=== PATIENT | male | born 1940 | race Caucasian/White ===

== ENCOUNTER 2016-12-02 14:06 | Observation (INO) | payer MEDICARE, BC ==
[~2016-12-02] VITALS: Ht 167.6 cm; Wt 70.0 kg
[2016-12-02] VITALS (12 sets, daily range): BP systolic 130–226; BP diastolic 70–101; PULSE 60–78; RESP 18–22; TEMP 98.3–98.6; O2SAT 97–100
[~2016-12-02 14:06] MED LIST: AMLO10 PO; ASPI325T PO; CHLO25TA2 PO; METF500 PO; NITR0.4S SL
--- NOTE | 2016-12-02 14:22 | PD ---
HPI Chief Complaint: Respiratory Distress Time Seen by Provider: 14:11 Travel History International Travel<30 days: No Contact w/Intl Traveler<30days: No Traveled to known affect area: No History of Present Illness HPI 76-year-old male complains of chest pain. Patient states that his eye having chest pain several days ago. Patient states that the pain across anterior chest with radiation to the neck. Patient states that the pain has been persistent however resolved before he came to the emergency room. Patient denies any chest pain now. Patient denies any history of CAD. Patient has history of hypertension. Patient denies history diabetes or hyperlipidemia. Patient is a nonsmoker. Patient has family history of heart disease. Patient states that he is not on any medication now. Patient states that he was on medication for hypertension however stopped taking it in the past. Patient has history of left inguinal hernia for years. PFSH Past Medical History Autoimmune Disease: No Anxiety: No Depression: Yes Heart Rhythm Problems: No Cancer: No Cardiovascular Problems: Yes (HTN) High Cholesterol: No Chemotherapy: No Chest Pain: Yes (PT SAYS HE HAD SOMETHING WRONG WITH HIS HEART BUT HE DOES NOT KNOW WHAT) Congestive Heart Failure: No Cerebrovascular Accident: No Diabetes: Yes Diminished Hearing: Yes (BILAT EAR PAIN) Endocrine: No Gastrointestinal Disorders: No GERD: No Genitourinary: No Hypertension: Yes Immune Disorder: No Musculoskeletal: No Neurologic: No Psychiatric: Yes Reproductive: No Respiratory: Yes Immunizations Current: Yes Radiation Therapy: No Seizures: No Sickle Cell Disease: No Thyroid Disease: No ?: Not Past Surgical History Abdominal Surgery: Yes (R HERNIA SX) AICD: No Arteriovenous Shunt: No Insulin Pump: No Joint Replacement: No Neurologic Surgery: Yes (discectomy) Pacemaker: No Other Surgery: Yes Social History Alcohol Use: Yes (COUPLE BEERS A DAY) Tobacco Use: Yes (1 PPD) Substance Use: No Allergies-Medications (Allergen,Severity, Reaction): Coded Allergies: No Known Allergies (Unverified , 12/01/15) Reported Meds & Prescriptions Reported Meds & Active Scripts Active Reported Norvasc (Amlodipine Besylate) 10 Mg Tab 10 Mg PO DAILY PRN Nitrostat SL (Nitroglycerin) 0.4 Mg Subl 0.4 Mg SL ONCE Glucophage (Metformin HCl) 500 Mg Tab 500 Mg PO With meals Chlorthalidone 25 Mg Tab 25 Mg PO DAILY [id number] M1 Unknown Strength Tab 1 Tab PO DAILY Review of Systems General / Constitutional: No: Fever Eyes: No: Visual changes HENT: No: Headaches Cardiovascular: Positive: Chest Pain or Discomfort Respiratory: No: Shortness of Breath Gastrointestinal: No: Abdominal Pain Genitourinary: No: Dysuria Musculoskeletal: No: Pain Skin: No Rash Neurologic: No: Weakness Psychiatric: No: Depression Endocrine: No: Polydipsia Hematologic/Lymphatic: No: Easy Bruising Physical Exam Narrative GENERAL: Well-nourished, well-developed patient. SKIN: Focused skin assessment warm/dry. HEAD: Normocephalic. EYES: No scleral icterus. No injection or drainage. NECK: Supple, trachea midline. No JVD or lymphadenopathy. CARDIOVASCULAR: Regular rate and rhythm without murmurs, gallops, or rubs. RESPIRATORY: Breath sounds equal bilaterally. No accessory muscle use. GASTROINTESTINAL: Abdomen soft, non-tender, nondistended. MUSCULOSKELETAL: No cyanosis, or edema. BACK: Nontender without obvious deformity. No CVA tenderness. Patient has a large reducible left inguinal hernia. Neurologic exam normal. Data Data Last Documented VS Vital Signs Date Time Temp Pulse Resp B/P (MAP) Pulse Ox O2 Delivery O2 Flow Rate FiO2 12/02/16 15:30 74 22 140/100 (113) 98 Nasal Cannula 2.00 12/02/16 14:16 98.3 Orders Orders Electrocardiogram (12/02/16 14:12) Complete Blood Count With Diff (12/02/16 14:12) Comprehensive Metabolic Panel (12/02/16 14:12) Creatine Kinase (Cpk) (12/02/16 14:12) Troponin I (12/02/16 14:12) B-Type Natriuretic Peptide (12/02/16 14:12) Prothrombin Time / Inr (Pt) (12/02/16 14:12) Act Partial Throm Time (Ptt) (12/02/16 14:12) Urinalysis - C+S If Indicated (12/02/16 14:12) Thyroid Stimulating Hormone (12/02/16 14:12) Chest, Single Ap (12/02/16 14:12) Iv Access Insert/Monitor (12/02/16 14:12) Ecg Monitoring (12/02/16 14:12) Oximetry (12/02/16 14:12) Sodium Chlor 0.9% 1000 Ml Inj (Ns 1000 M (12/02/16 14:15) Labs Laboratory Tests Test 12/02/16 14:30 12/02/16 15:35 White Blood Count 10.4 TH/MM3 Red Blood Count 3.98 MIL/MM3 Hemoglobin 11.3 GM/DL Hematocrit 34.8 % Mean Corpuscular Volume 87.4 FL Mean Corpuscular Hemoglobin 28.4 PG Mean Corpuscular Hemoglobin Concent 32.5 % Red Cell Distribution Width 16.5 % Platelet Count 273 TH/MM3 Mean Platelet Volume 9.6 FL Neutrophils (%) (Auto) 43.1 % Lymphocytes (%) (Auto) 49.8 % Monocytes (%) (Auto) 5.8 % Eosinophils (%) (Auto) 1.1 % Basophils (%) (Auto) 0.2 % Neutrophils # (Auto) 4.5 TH/MM3 Lymphocytes # (Auto) 5.2 TH/MM3 Monocytes # (Auto) 0.6 TH/MM3 Eosinophils # (Auto) 0.1 TH/MM3 Basophils # (Auto) 0.0 TH/MM3 CBC Comment AUTO DIFF Differential Total Cells Counted 100 Neutrophils % (Manual) 46 % Band Neutrophils % 1 % Lymphocytes % 51 % Monocytes % 2 % Neutrophils # (Manual) 4.9 TH/MM3 Differential Comment FINAL DIFF MANUAL Platelet Estimate NORMAL Platelet Morphology Comment NORMAL Ovalocytes 1+ Keratocytes OCC Prothrombin Time 10.2 SEC Prothromb Time International Ratio 0.9 RATIO Activated Partial Thromboplast Time 25.5 SEC Blood Urea Nitrogen 18 MG/DL Creatinine 0.97 MG/DL Random Glucose 93 MG/DL Total Protein 8.2 GM/DL Albumin 3.2 GM/DL Calcium Level 8.6 MG/DL Alkaline Phosphatase 74 U/L Aspartate Amino Transf (AST/SGOT) 18 U/L Alanine Aminotransferase (ALT/SGPT) 26 U/L Total Bilirubin 0.3 MG/DL Sodium Level 138 MEQ/L Potassium Level 4.0 MEQ/L Chloride Level 105 MEQ/L Carbon Dioxide Level 27.8 MEQ/L Anion Gap 5 MEQ/L Estimat Glomerular Filtration Rate 75 ML/MIN Total Creatine Kinase 29 U/L Troponin I LESS THAN 0.02 NG/ML B-Type Natriuretic Peptide 342 PG/ML Thyroid Stimulating Hormone 3rd Gen 0.540 uIU/ML Urine Color YELLOW Urine Turbidity CLEAR Urine pH 7.5 Urine Specific [place] 1.012 Urine Protein NEG mg/dL Urine Glucose (UA) NEG mg/dL Urine Ketones NEG mg/dL Urine Occult Blood NEG Urine Nitrite NEG Urine Bilirubin NEG Urine Urobilinogen LESS THAN 2.0 MG/DL Urine Leukocyte Esterase NEG Urine RBC LESS THAN 1 /hpf Microscopic Urinalysis Comment CULT NOT INDICATED MDM Medical Decision Making Medical Screen Exam Complete: Yes Emergency Medical Condition: Yes Interpretation(s) 1421 PM. EKG shows sinus rhythm with frequent PVC. Last Impressions Chest X-Ray 12/02/16 1412 Signed Impressions: Service Date/Time: November 14:26 - CONCLUSION: 1. Airspace consolidation in the right midlung zone, likely chronic given previous findings in this region. However, given lack of more recent prior exams at least a partially acute airspace consolidation cannot be excluded in the appropriate clinical setting. Paxton Medina MD 1447 PM. CBC WBC 10.4. Hemoglobin 11.3 hematocrit 34.8. 49 lymphocytes. CMP within normal limit. Cardiac enzymes are normal. BNP 342. Differential Diagnosis Differential diagnosis including angina, OH, PE, pneumothorax, uncontrolled hypertension. Narrative Course 76-year-old male with chest pain. History hypertension, noncompliant. Diagnosis Primary Impression: Chest pain Qualified Codes: R07.9 - Chest pain, unspecified Admitting Information Admitting Physician Requests: Observation Michael Foreman MD Dec 02, 2016 14:22
[2016-12-02 14:52] LABS: AUTOMATED NEUTROPHIL # 4.5 TH/MM3 (1.8-7.7); BASOPHIL % 0.2 % (0.0-2.0); EOSINOPHIL # 0.1 TH/MM3 (0-0.4); EOSINOPHIL % 1.1 % (0.0-4.0); HEMATOCRIT 34.8 % (39.0-51.0); LYMPH % 49.8 % (9.0-44.0); LYMPHOCYTE # 5.2 TH/MM3 (1.0-4.8); MEAN CELL VOLUME 87.4 FL (80.0-100.0); MEAN CORPUSCULAR HEMOGLOBIN 28.4 PG (27.0-34.0); MEAN CORPUSCULAR HGB CONC 32.5 % (32.0-36.0); MONO % 5.8 % (0.0-8.0); NEUT % 43.1 % (16.0-70.0); PLATELET COUNT 273 TH/MM3 (150-450); RED BLOOD COUNT 3.98 MIL/MM3 (4.50-5.90); RED CELL DISTRIBUTION WIDTH 16.5 % (11.6-17.2); WHITE BLOOD COUNT 10.4 TH/MM3 (4.0-11.0)
[2016-12-02 14:54] LABS: HEMO FLAGS AUTO DIFF
[2016-12-02] MEDS: SODIUM CHLOR 0.9% 1000 ML INJ 1,000 ML IV SCH ×2 (14:58→22:51)
[2016-12-02 15:02] LABS: APTT (PATIENT) 25.5 SEC (24.3-30.1); INTERNATIONAL NORMALIZED RATIO 0.9 RATIO; PROTHROMBIN TIME - PATIENT 10.2 SEC (9.8-11.6)
[2016-12-02 15:13] LABS: ALT (GPT) 26 U/L (12-78); ANION GAP 5 MEQ/L (5-15); AST (GOT) 18 U/L (15-37); BICARBONATE 27.8 MEQ/L (21.0-32.0); BLOOD UREA NITROGEN 18 MG/DL (7-18); CHLORIDE 105 MEQ/L (98-107); GLOMERULAR FILTRATION RATE 75 ML/MIN (>89); SODIUM (NA) 138 MEQ/L (136-145)
[2016-12-02 15:24] LABS: ALKALINE PHOSPHATASE 74 U/L (45-117); TOTAL BILIRUBIN ADULT 0.3 MG/DL (0.2-1.0)
[2016-12-02 15:26] LABS: CREATINE KINASE 29 U/L (39-308)
[2016-12-02 15:52] LABS: BANDS 1 % (0-6); KERATOCYTES OCC (NORMAL); NEUTROPHIL # MANUAL DIFF 4.9 TH/MM3 (1.8-7.7); OVALOCYTES 1+ (NORMAL); PLATELET ESTIMATE SMEAR NORMAL (NORMAL); PLATELET MORPHOLOGY NORMAL (NORMAL); POLYS (SEG NEUTROPHILS) 46 % (16-70); SCAN/DIFF FINAL DIFF MANUAL; WBC DIFF SAMPLE 100
--- NOTE | 2016-12-02 16:06 | RADRPT ---
EXAM DATE/TIME: 12/02/2016 14:26 [facility] COMPARISON: CHEST SINGLE AP, December 01, 2015, 11:32. INDICATIONS : Chest pain MEDICAL HISTORY : Hypertension. SURGICAL HISTORY : None. ENCOUNTER: Initial ACUITY: 1 day PAIN SCORE: 4/10 LOCATION: chest FINDINGS: Focal air space consolidation in the right midlung zone corresponding to region of prior mild airspac e disease and overlying rib trauma. No new focal pleural or parenchymal opacities. Cardiomediastinal contours are stable given degree of rotation. Remainder of the exam is unchanged. CONCLUSION: 1. Airspace consolidation in the right midlung zone, likely chronic given previous findings in this r egion. However, given lack of more recent prior exams at least a partially acute airspace consolidati on cannot be excluded in the appropriate clinical setting. Paxton Medina MD on December 02, 2016 at 15:35 Board Certified Radiologist. This report was verified electronically.
[2016-12-02 16:57] LABS: BLOOD, URINE NEG (NEG); GLUCOSE,URINE NEG (NEG); KETONE, URINE NEG (NEG); NITRITE,URINE NEG (NEG); PH, URINE 7.5 (5.0-8.5); URINE COLOR YELLOW (YELLW/STRAW)
[2016-12-02 17:00] LABS: COMMENT (UR) CULT NOT INDICATED; CULTURE IF INDICATED CULT NOT INDICATED
[2016-12-02] MEDS ORDERED: hydrALAZINE HCL 20 MG/ML VIAL IV PUSH ONE (18:15)
[2016-12-02] MEDS ORDERED: cloNIDine HCL 0.1 MG TAB PO PRN (18:30)
[2016-12-02] MEDS ORDERED: SODIUM CHLORIDE 0.9% FLUSH 10 ML FLUSH IV FLUSH PRN (18:30)
[2016-12-02 19:50] LABS: CREATINE KINASE 26 U/L (39-308)
[2016-12-02] MEDS ORDERED: MORPHINE SULFATE 4 MG/ML INJ IV PUSH PRN (20:15)
[2016-12-02] MEDS: SODIUM CHLORIDE 0.9% FLUSH 10 ML FLUSH IV FLUSH SCH (20:41)
[2016-12-02] MEDS: amLODIPine BESYLATE 5 MG TAB PO SCH (21:42)
[2016-12-02 22:57] LABS: CREATINE KINASE 26 U/L (39-308)
[2016-12-02] MEDS ORDERED: ALPRAZolam 0.5 MG TAB PO PRN (23:45)
[2016-12-03] VITALS (8 sets, daily range): BP systolic 150–159; BP diastolic 70–83; PULSE 51–77; RESP 16–18; TEMP 97.6–98.3; O2SAT 95–100
[2016-12-03] MEDS: SODIUM CHLORIDE 0.9% FLUSH 10 ML FLUSH IV FLUSH SCH (08:37)
[2016-12-03] MEDS: amLODIPine BESYLATE 5 MG TAB PO SCH (08:37)
[2016-12-03] MEDS: SODIUM CHLOR 0.9% 1000 ML INJ 1,000 ML IV SCH (08:38)
[2016-12-03] MEDS ORDERED: ONDANSETRON HCL 4 MG/2 ML VIAL IV PUSH PRN (09:00)
[2016-12-03] MEDS ORDERED: ACETAMINOPHEN 500 MG CPLT PO PRN (09:00)
--- NOTE | 2016-12-03 09:00 | HHI.HP ---
HPI Primary Care Physician No Primary Care Physician Chief Complaint Chest pain History of Present Illness 76-year-old patient with history of hypertension and diabetes presents to emergency room for further evaluation of chest pain. Onset 2 days ago. Location bilateral lower chest. Described as intermittent pressure. Duration 5 minutes. No radiation of pain. No associated symptoms of nausea, vomiting, or diaphoresis. Reports "being short of breath all the time." Nonexertional. No precipitating or relieving factors. Denies any similar pain in the past. Also states increased fatigue 1 month. No recent illness, fever, chills, or weakness. He quit taking his blood pressure and diabetic medication earlier this year stating "I didn't want to take medication anymore." He does not follow with a PCP. Review of Systems General: Increased fatigue 1 month. No Weakness, fever, chills, recent illness , or change in appetite HEENT: No RUBIO, no dysphasia CV: As stated above. No current CP or pressure. RESP: Increasing shortness of breath 1 month, reports "smoker's cough," and daily sputum production. No hemoptysis, history of asthma, or wheezing. GI: No nausea, vomiting, bowel changes, diarrhea, constipation, pain, distention. Report intermittent dark stool. No unintentional weight gain or weight loss. : No dysuria. Concern he has prostate problems due frequency and hesitancy, no hematuria. History of inguinal hernia repair in year ago, reports hernia returned 6 months ago and was told to have another surgery, he did not follow up. EXT: No lower leg edema, no paraesthesias, intermittent pain left leg on exertion. MS: No discomfort or change in ROM, ambulates independently without cane or walker. NEURO: No difficulty with balance, LOC, motor/sensory deficits PSYCH: No anxiety, depression, or suicidal ideation SKIN: No rashes, no concerning lesions Past Family Social History Allergies: Coded Allergies: No Known Allergies (Unverified , 12/01/15) Past Medical History Hypertension, depression, diabetes type 2 Past Surgical History Right hernia surgery, discectomy Reported Medications Reported Meds & Active Scripts Active Reported None Quit taking medication earlier this year. Active Ordered Medications Current Medications Medications (Trade) Dose Ordered Sig/Rosa Route Start Time Stop Time Status Last Admin Sodium Chloride 1,000 ml @ 100 mls/hr Q10H IV 12/02/16 14:15 12/03/16 08:38 (NS Flush) 2 ml UNSCH PRN IV FLUSH 12/02/16 18:30 (NS Flush) 2 ml BID IV FLUSH 12/02/16 21:00 12/03/16 08:37 (Catapres) 0.1 mg Q6H PRN PO 12/02/16 18:30 (Norvasc) 5 mg DAILY PO 12/02/16 20:00 12/03/16 08:37 (Morphine Inj) 4 mg Q4H PRN IV PUSH 12/02/16 20:15 12/02/16 20:42 (Xanax) 0.5 mg Q6H PRN PO 12/02/16 23:45 12/02/16 23:36 Family History Noncontributory for early onset cardiovascular disease Social History Known hypertension and diabetes. No known hyperlipidemia or personal coronary artery disease. Lifelong smoker, one pack/daily. Denies any alcohol use, reports pass problem with alcohol misuse. from his . Lives with a friend. Past cardiac testing 03/25/2015 Lexiscan- unremarkable Physical Exam Vital Signs Vital Signs Date Time Temp Pulse Resp B/P (MAP) Pulse Ox O2 Delivery O2 Flow Rate FiO2 12/03/16 07:57 97.6 58 16 159/76 (103) 100 12/03/16 04:50 98.2 76 18 150/70 (96) 95 12/03/16 04:14 65 12/03/16 01:33 98.3 65 18 150/79 (102) 98 12/03/16 00:01 77 12/02/16 21:53 165/70 (101) 12/02/16 20:11 75 12/02/16 19:45 98 Nasal Cannula 2.00 12/02/16 19:00 98.6 60 18 132/80 (97) 100 12/02/16 18:36 12/02/16 18:35 98 Nasal Cannula 2.00 12/02/16 18:25 71 189/93 (125) 12/02/16 18:00 70 22 226/86 (132) 98 Nasal Cannula 2.00 12/02/16 17:30 76 22 210/101 (137) 98 Nasal Cannula 2.00 12/02/16 16:30 78 22 137/89 (105) 97 Nasal Cannula 2.00 12/02/16 15:30 74 22 140/100 (113) 98 Nasal Cannula 2.00 12/02/16 14:16 99 Nasal Cannula 2.00 12/02/16 14:16 98.3 72 22 130/90 (103) 99 Nasal Cannula 2.00 12/02/16 14:16 74 22 99 Nasal Cannula 2.00 12/02/16 14:12 98.3 76 22 130/90 (103) 99 Physical Exam GENERAL: Alert WN, WD, NAD, pleasant, elderly male who appears older than stated age solar damage and shabby. HEAD: NC, AT EYES: Sclera clear, conjunctiva without injection ENT: Mucous membranes pink and moist NECK: Supple, no masses, trachea midline CV: RRR, 2/6 systolic murmur, no rub, no gallop, no JVD, S1-S2 no S3-S4. Bilateral carotid bruits, bilateral femoral bruits R>L, faint pedal pulses bilateral however palpable, varicosities bilateral, PT pulses palpable + 2, femoral pulses +2 RESP: Diminished lungs throughout bilateral, scattered rhonchi, no crackles, no wheeze. Symmetrical chest rise, nonlabored, able to speak in full sentences with mild dyspnea ABD: Soft, NT, ND, no masses, positive bowel tones EXT: no dependent edema MS: Normal tone 4 extremities, nontender, no obvious deformities, full range of motion NEURO: CN II through CN XII grossly intact, motor strength 5/5, gait WNL PSYCH: A+O 3, pleasant affect, appropriate speech, appropriate mood and affect , insight and judgment SKIN: Normal turgor, normal texture, no lesions, no rashes, sluggish cap refill , decreased hair distribution bilateral lower extremities Laboratory Laboratory Tests Test 12/02/16 14:30 12/02/16 15:35 12/02/16 18:54 12/02/16 21:35 White Blood Count 10.4 Red Blood Count 3.98 Hemoglobin 11.3 Hematocrit 34.8 Mean Corpuscular Volume 87.4 Mean Corpuscular Hemoglobin 28.4 Mean Corpuscular Hemoglobin Concent 32.5 Red Cell Distribution Width 16.5 Platelet Count 273 Mean Platelet Volume 9.6 Neutrophils (%) (Auto) 43.1 Lymphocytes (%) (Auto) 49.8 Monocytes (%) (Auto) 5.8 Eosinophils (%) (Auto) 1.1 Basophils (%) (Auto) 0.2 Neutrophils # (Auto) 4.5 Lymphocytes # (Auto) 5.2 Monocytes # (Auto) 0.6 Eosinophils # (Auto) 0.1 Basophils # (Auto) 0.0 CBC Comment AUTO DIFF Differential Total Cells Counted 100 Neutrophils % (Manual) 46 Band Neutrophils % 1 Lymphocytes % 51 Monocytes % 2 Neutrophils # (Manual) 4.9 Differential Comment FINAL DIFF MANUAL Platelet Estimate NORMAL Platelet Morphology Comment NORMAL Ovalocytes 1+ Keratocytes OCC Prothrombin Time 10.2 Prothromb Time International Ratio 0.9 Activated Partial Thromboplast Time 25.5 Blood Urea Nitrogen 18 Creatinine 0.97 Random Glucose 93 Total Protein 8.2 Albumin 3.2 Calcium Level 8.6 Alkaline Phosphatase 74 Aspartate Amino Transf (AST/SGOT) 18 Alanine Aminotransferase (ALT/SGPT) 26 Total Bilirubin 0.3 Sodium Level 138 Potassium Level 4.0 Chloride Level 105 Carbon Dioxide Level 27.8 Anion Gap 5 Estimat Glomerular Filtration Rate 75 Total Creatine Kinase 29 26 26 Troponin I LESS THAN 0.02 LESS THAN 0.02 LESS THAN 0.02 B-Type Natriuretic Peptide 342 Thyroid Stimulating Hormone 3rd Gen 0.540 Urine Color YELLOW Urine Turbidity CLEAR Urine pH 7.5 Urine Specific [place] 1.012 Urine Protein NEG Urine Glucose (UA) NEG Urine Ketones NEG Urine Occult Blood NEG Urine Nitrite NEG Urine Bilirubin NEG Urine Urobilinogen LESS THAN 2.0 Urine Leukocyte Esterase NEG Urine RBC LESS THAN 1 Microscopic Urinalysis Comment CULT NOT INDICATED Result Diagram: 12/02/16 1430 12/02/16 1430 Imaging Last Impressions Myocardial Perfusion Scan Nuc Med 12/03/16 0000 Signed Impressions: Service Date/Time: Saturday, December 03, 2016 12:52 - CONCLUSION: 1. No significant reversible perfusion abnormality. 2. Fixed anterior and inferior wall defects with associated hypokinesia. 3. Chamber enlargement with decreased EF of 38%%. RISK CATEGORY: Intermediate (1-3%% Annual Mortality Rate) Paxton Medina MD Chest X-Ray 12/02/16 1412 Signed Impressions: Service Date/Time: November 14:26 - CONCLUSION: 1. Airspace consolidation in the right midlung zone, likely chronic given previous findings in this region. However, given lack of more recent prior exams at least a partially acute airspace consolidation cannot be excluded in the appropriate clinical setting. Paxton Medina MD Course EKG Normal sinus rhythm, frequent PVCs, nonspecific ST changes Caprini VTE Risk Assessment Caprini VTE Risk Assessment: Mod/High Risk (score >= 2) Caprini Risk Assessment Model Point Value = 1 Point Value = 2 Point Value = 3 Point Value = 5 Age 41-60 Minor surgery BMI > 25 kg/m2 Swollen legs Varicose veins or History of unexplained or recurrent spontaneous Oral contraceptives or hormone replacement Sepsis (< 1 month) Serious lung disease, including pneumonia (< 1 month) Abnormal pulmonary function Acute myocardial infarction Congestive heart failure (< 1 month) History of inflammatory bowel disease Medical patient at bed rest Age 61-74 Arthroscopic surgery Major open surgery (> 45 min) Laparoscopic surgery (> 45 min) Malignancy Confined to bed (> 72 hours) Immobilizing plaster cast Central venous access Age >= 75 History of VTE Family history of VTE Factor V Leiden Prothrombin [id number] Lupus anticoagulant Anticardiolipin antibodies Elevated serum homocysteine Heparin-induced thrombocytopenia Other congenital or acquired thrombophilia Stroke (< 1 month) Elective arthroplasty Hip, pelvis, or leg fracture Acute spinal cord injury (< 1 month) Prophylaxis Regimen Total Risk Factor Score Risk Level Prophylaxis Regimen 0-1 Low Early ambulation 2 Moderate Order ONE of the following: *Sequential Compression Device (SCD) *Heparin 5000 units SQ BID 3-4 Higher Order ONE of the following medications: *Heparin 5000 units SQ TID *Enoxaparin/Lovenox 40 mg SQ daily (WT < 150 kg, CrCl > 30 mL/min) *Enoxaparin/Lovenox 30 mg SQ daily (WT < 150 kg, CrCl > 10-29 mL/min) *Enoxaparin/Lovenox 30 mg SQ BID (WT < 150 kg, CrCl > 30 mL/min) AND/OR *Sequential Compression Device (SCD) 5 or more Highest Order ONE of the following medications: *Heparin 5000 units SQ TID (Preferred with Epidurals) *Enoxaparin/Lovenox 40 mg SQ daily (WT < 150 kg, CrCl > 30 mL/min) *Enoxaparin/Lovenox 30 mg SQ daily (WT < 150 kg, CrCl > 10-29 mL/min) *Enoxaparin/Lovenox 30 mg SQ BID (WT < 150 kg, CrCl > 30 mL/min) AND *Sequential Compression Device (SCD) Assessment and Plan Assessment and Plan #1 Atypical chest pain-admitted to chest pain center. Ruled out with 3 sets of EKGs, cardiac enzymes, and monitored overnight. Seen and evaluated by Dr. Osmani Pearson. Proceed with Lexiscan, if unremarkable discharge later this afternoon. Patient is agreeable to plan of care. #2 Hypertension-continue to monitor, amlodipine 5 mg daily, clonidine 0.1 mg every 6 hours when necessary. Plan to discharge with prescription of amlodipine 5 mg daily. #3 Tobacco use-strongly encouraging stress importance of tobacco sensation. Instructed him to quit smoking. #4 Anemia-discussed hemoglobin and hematocrit levels, strongly encouraged to establish with a primary care provider for further evaluation, no acute bleeding , reported dark stools and explained importance of follow up testing #5 PVD-assessment findings suggest peripheral vascular disease. Education on importance of statin therapy although this would need to be started by PCP. #6 Inguinal [id number] with previous surgeon as previously instructed, no acute findings #7 Diabetes-educated on importance of tight blood sugar control and compliance of medication. Encouraged him to restart metformin as previously instructed and to follow-up with PCP. 1500-Lexiscan results decreased EF and fixed defects anterior and inferiorly with hypokinesis. Dr. Pearson discussed his with patient in length. Metoprolol 25 mg twice a day and amlodipine 5 mg daily prescriptions given at discharge. Instructed to follow up with cardiology. Bhavya Cano Dec 03, 2016 09:00
[2016-12-03] MEDS ORDERED: REGADENOSON INJ 0.4 MG/5 ML SYR ONE (13:38)
--- NOTE | 2016-12-03 13:52 | EKG ---
Date Performed: 12/02/2016 Time Performed: 21:33:42 PTAGE: 76 years EKG: Sinus rhythm WITH FREQUENT VENTRICULAR PREMATURE COMPLEXES POSSIBLE LEFT ATRIAL ENLARGEMENT LEFT VENTRICULAR HYPE RTROPHY AND ST-T CHANGE ABNORMAL ECG PREVIOUS TRACING : 12/02/2016 18.52 Since previous tracing, no significant change noted DOCTOR: Osmani Pearson Interpretating Date/Time 12/03/2016 13:51:36
--- NOTE | 2016-12-03 13:56 | EKG ---
Date Performed: 12/02/2016 Time Performed: 18:52:56 PTAGE: 76 years EKG: Sinus rhythm WITH FREQUENT VENTRICULAR PREMATURE COMPLEXES POSSIBLE LEFT ATRIAL ENLARGEMENT LEFT VENTRICULAR HYPE RTROPHY AND ST-T CHANGE ABNORMAL ECG PREVIOUS TRACING : 12/02/2016 14.12 Since previous tracing, no significant change noted DOCTOR: Osmani Pearson Interpretating Date/Time 12/03/2016 13:54:48
--- NOTE | 2016-12-03 13:58 | EKG ---
Date Performed: 12/02/2016 Time Performed: 14:12:23 PTAGE: 76 years EKG: Sinus rhythm WITH FREQUENT VENTRICULAR PREMATURE COMPLEXES LEFT VENTRICULAR HYPERTROPHY AND ST-T CHANGE ABNORMAL ECG INTERPRETATION BASED ON A DEFAULT AGE OF 40 YEARS PREVIOUS TRACING : 12/01/2015 11.03 Compared to previous tracing ,PVCs are new. DOCTOR: Osmani Pearson Interpretating Date/Time 12/03/2016 13:57:36
--- NOTE | 2016-12-03 15:25 | RADRPT ---
EXAM DATE/TIME: 12/03/2016 12:52 [facility] COMPARISON: MYOCARDIAL PERF PHARM SPECT, GATED W/EF, March 25, 2015, 10:16. INDICATIONS : Chest pain for 2 days. Angina. Coronary artery disease. DOSE: 27.2 mCi Tc99m Myoview at stress. 8.4 mCi Tc99m Myoview at rest. 0.4 mg Lexiscan STRESS SYMPTOMS: Dyspnea. EJECTION FRACTION: 38% MEDICAL HISTORY : Hypertension. Smoker. SURGICAL HISTORY : Inguinal hernia repair. Discectomy. ENCOUNTER: Initial ACUITY: 2 days PAIN SCALE: 3/10 LOCATION: Bilateral chest TECHNIQUE: The patient underwent pharmacologic stress with infusion of prescribed dose. Continuous ECG tracing was monitored during stress. Gated SPECT imaging was performed after stress and conventional SPECT i maging was performed at rest. The examination was performed on a SPECT/CT scanner, both attenuation and non-corrected datasets were reviewed. FINDINGS: DISTRIBUTION: The maximum perfused segment at stress is in the lateral wall. PERFUSION STUDY: Fixed defect in the anterior and inferior anne. No significant stress induced perfusion abnormality. GATED STUDY: Diffuse chamber enlargement with apical inferior wall hypokinesia. Diffusely reduced EF. CONCLUSION: 1. No significant reversible perfusion abnormality. 2. Fixed anterior and inferior wall defects with associated hypokinesia. 3. Chamber enlargement with decreased EF of 38%. RISK CATEGORY: Intermediate (1-3% Annual Mortality Rate) Paxton Medina MD on December 03, 2016 at 15:12 Board Certified Radiologist. This report was verified electronically.
[2016-12-03] MEDS ORDERED: ACETAMINOPHEN/HYDROcodone 325 MG/5 MG TAB PO ONE (15:30)
[2016-12-03] MEDS ORDERED: AMLO5TAB2 PO (15:58)
[2016-12-03] MEDS ORDERED: METO25TA3 PO (15:58)
--- NOTE | 2016-12-03 16:07 | HHI.DCPOC ---
Discharge Care Plan Diagnosis: (1) Chronic ischemic heart disease, unspecified (2) Atypical chest pain (3) Decreased cardiac ejection fraction (4) Tobacco abuse Goals to Promote Your Health * To prevent worsening of your condition and complications * To maintain your health at the optimal level Directions to Meet Your Goals Take your medications as prescribed Follow your dietary instruction Follow activity as directed Keep your appointments as scheduled Take your immunizations and boosters as scheduled If your symptoms worsen call your PCP, if no PCP go to Urgent Care Center or Emergency Room Smoking is Dangerous to Your Health. Avoid second hand smoke Call the 24-hour hour crisis hotline for domestic abuse at Bhavya Cano Dec 03, 2016 16:07
--- NOTE | 2016-12-04 13:44 | TR ---
Date Performed: 12/03/2016 Time Performed: 13:32:22 DOCTOR: Luca Neumann DRUG LIST: CLINICAL HISTORY: ANGINA REASON FOR TEST: Angina REASON FOR ENDING: OBSERVATION: CONCLUSION: Patient exercised using the Marito protocol. No electrocardiographic changes were see n to suggest ischemia. Hemodynamic response to exercise was normal. No significant arrhythmia was pre sent although early ventricular ectopy was noted. COMMENTS: Resting EKG changes but no progression with exercise. Low probability of severy ische torres with current admission.
== END 2016-12-03 18:07 | disposition home or self-care (01) ==
LOC: NEPE 14:06 → NEDA 17:26 → NEPGCP 19:08
PROVIDERS: ADMIT Internal Medicine Cardiovascular Disease; ATTEND Internal Medicine Cardiovascular Disease
DX: I25.9 Chronic ischemic heart disease, unspecified (principal); I11.9 Hypertensive heart disease without heart failure; R07.89 Other chest pain; I49.3 Ventricular premature depolarization; E11.9 Type 2 diabetes mellitus without complications; I73.9 Peripheral vascular disease, unspecified; D64.9 Anemia, unspecified; F17.200 Nicotine dependence, unspecified, uncomplicated; Z79.899 Other long term (current) drug therapy
CPT/HCPCS: 71010; 78452; 80053; 81001; 82550; 82948; 83880; 84443; 84484; 85007; 85027; 85610; 85730; 93005; 93017; 96361; 96374; 96375; 99285; A9502; G0378; J0360; J2270; J2785; J7030

== ENCOUNTER 2016-12-26 09:20 | Inpatient (IN) | payer MEDICARE, BC ==
[2016-12-26] VITALS (11 sets, daily range): BP systolic 133–173; BP diastolic 66–81; PULSE 60–96; RESP 14–18; TEMP 98–98.7; O2SAT 95–100
[~2016-12-26] VITALS: Ht 167.6 cm; Wt 71.8 kg
[~2016-12-26 09:20] MED LIST changes: -AMLO10 PO; +AMLO5TAB2 PO; -CHLO25TA2 PO; -METF500 PO; +METO25TA3 PO; -NITR0.4S SL
[2016-12-26] MEDS ORDERED: SODIUM CHLOR 0.9% 1000 ML INJ 1,000 ML IV SCH (09:48)
--- NOTE | 2016-12-26 09:57 | PD ---
HPI Chief Complaint: Musculoskeletal Complaint Time Seen by Provider: 09:35 Travel History International Travel<30 days: No Contact w/Intl Traveler<30days: No Traveled to known affect area: No History of Present Illness HPI Patient is a 76-year-old male with history of hypertension, depression, type 2 diabetes, presents to emergency room with multiple complaints. Patient reports that he has not been feeling well for the past 2 days. He reports that 2 days ago followed-up with his primary care doctor and was told that he had a lung infection. Reports that he was given a prescription for antibiotics but he did not fill them as he was too weak. Reports that for the past 2 days, he has been laying in bed. Reports that he is coughing and bringing up thick white sputum. Reports that he is also having chest pain, reports that it feels as if something is sitting on his chest. Reports that chest pain is exacerbated with cough. Also reports that 10 days ago, he fell and landed onto his chest. Reports "I think that I may have fractured a few ribs because my ribs hurt me as well." Patient reports subjective fevers and chills, patient reports that chest pain is improved at this time. Patient denies any sick contacts, denies any recent travels [facility] Past Medical History Autoimmune Disease: No Anxiety: No Depression: Yes Heart Rhythm Problems: No Cancer: No Cardiac Catheterization: No Cardiovascular Problems: Yes High Cholesterol: No Chemotherapy: No Chest Pain: Yes Congestive Heart Failure: No Cerebrovascular Accident: No Diabetes: Yes Patient Takes Glucophage: No Diminished Hearing: Yes (BILAT EAR PAIN) Endocrine: No Gastrointestinal Disorders: No GERD: No Genitourinary: No Hypertension: Yes Immune Disorder: No Musculoskeletal: No Neurologic: No Psychiatric: Yes Reproductive: No Respiratory: Yes Immunizations Current: Yes Radiation Therapy: No Seizures: No Sickle Cell Disease: No Thyroid Disease: No Tetanus Vaccination: Unknown Influenza Vaccination: No Past Surgical History Abdominal Surgery: Yes (R HERNIA) AICD: No Arteriovenous Shunt: No Coronary Artery Bypass Graft: No Insulin Pump: No Joint Replacement: No Neurologic Surgery: Yes (diskectomy) Pacemaker: No Other Surgery: Yes Family History Family Myocardial Infarction: Yes Social History Alcohol Use: No Tobacco Use: Yes (1 PPD) Substance Use: No Allergies-Medications (Allergen,Severity, Reaction): Coded Allergies: No Known Allergies (Unverified , 12/01/15) Reported Meds & Prescriptions Reported Meds & Active Scripts Active Metoprolol Tartrate 25 Mg Tab 25 Mg PO BID Amlodipine (Amlodipine Besylate) 5 Mg Tab 5 Mg PO DAILY Review of Systems General / Constitutional: No: Fever Eyes: No: Visual changes HENT: No: Headaches Cardiovascular: Positive: Chest Pain or Discomfort Respiratory: Positive: Cough, Shortness of Breath Gastrointestinal: No: Abdominal Pain Genitourinary: No: Dysuria Musculoskeletal: No: Pain Skin: No Rash Neurologic: Positive: Weakness Psychiatric: No: Depression Endocrine: No: Polydipsia Hematologic/Lymphatic: No: Easy Bruising Physical Exam Narrative GENERAL: moderate distress SKIN: Focused skin assessment warm/dry. HEAD: Atraumatic. Normocephalic. EYES: Pupils equal and round. No scleral icterus. No injection or drainage. ENT: No nasal bleeding or discharge. Mucous membranes pink and moist. NECK: Trachea midline. No JVD. CARDIOVASCULAR: Regular rate and rhythm. No murmur appreciated. RESPIRATORY: No accessory muscle use. Breath sounds equal bilaterally. Rhales at lung bases GASTROINTESTINAL: Abdomen soft, non-tender, nondistended. Hepatic and splenic margins not palpable. MUSCULOSKELETAL: No obvious deformities. No clubbing. No cyanosis. No edema. NEUROLOGICAL: Awake and alert. No obvious cranial nerve deficits. Motor grossly within normal limits. Normal speech. PSYCHIATRIC: Appropriate mood and affect; insight and judgment normal. Data Data Last Documented VS Vital Signs Date Time Temp Pulse Resp B/P (MAP) Pulse Ox O2 Delivery O2 Flow Rate FiO2 12/26/16 11:35 74 16 153/81 (105) 100 Nasal Cannula 2.00 12/26/16 09:31 98.5 Orders Orders Electrocardiogram (12/26/16 ) Complete Blood Count With Diff (12/26/16 09:48) Comprehensive Metabolic Panel (12/26/16 09:48) Influenzae A/B Antigen (12/26/16 09:48) Urinalysis - C+S If Indicated (12/26/16 09:48) Blood Culture (12/26/16 09:48) Chest, Single Ap (12/26/16 09:48) Ecg Monitoring (12/26/16 09:48) Iv Access Insert/Monitor (12/26/16 09:48) Oximetry (12/26/16 09:48) Sodium Chlor 0.9% 1000 Ml Inj (Ns 1000 M (12/26/16 09:48) B-Type Natriuretic Peptide (12/26/16 09:48) Ckmb (Isoenzyme) Profile (12/26/16 09:48) Troponin I (12/26/16 09:48) Ct Pulmonary Angiogram (12/26/16 09:48) Aspirin Chew (Aspirin Chew) (12/26/16 10:45) Iohexol 350 Inj (Omnipaque 350 Inj) (12/26/16 11:32) Ceftriaxone Inj (Rocephin Inj) (12/26/16 12:15) Azithromycin Inj (Zithromax Inj) (12/26/16 12:15) Labs Laboratory Tests Test 12/26/16 10:00 White Blood Count 11.8 TH/MM3 Red Blood Count 3.71 MIL/MM3 Hemoglobin 10.7 GM/DL Hematocrit 32.6 % Mean Corpuscular Volume 88.0 FL Mean Corpuscular Hemoglobin 28.9 PG Mean Corpuscular Hemoglobin Concent 32.8 % Red Cell Distribution Width 17.7 % Platelet Count 257 TH/MM3 Mean Platelet Volume 9.2 FL Neutrophils (%) (Auto) 60.7 % Lymphocytes (%) (Auto) 32.1 % Monocytes (%) (Auto) 6.0 % Eosinophils (%) (Auto) 0.7 % Basophils (%) (Auto) 0.5 % Neutrophils # (Auto) 7.2 TH/MM3 Lymphocytes # (Auto) 3.8 TH/MM3 Monocytes # (Auto) 0.7 TH/MM3 Eosinophils # (Auto) 0.1 TH/MM3 Basophils # (Auto) 0.1 TH/MM3 CBC Comment DIFF FINAL Differential Comment Blood Urea Nitrogen 22 MG/DL Creatinine 0.93 MG/DL Random Glucose 140 MG/DL Total Protein 8.9 GM/DL Albumin 3.4 GM/DL Calcium Level 8.9 MG/DL Alkaline Phosphatase 85 U/L Aspartate Amino Transf (AST/SGOT) 20 U/L Alanine Aminotransferase (ALT/SGPT) 27 U/L Total Bilirubin 0.5 MG/DL Sodium Level 138 MEQ/L Potassium Level 4.0 MEQ/L Chloride Level 105 MEQ/L Carbon Dioxide Level 26.9 MEQ/L Anion Gap 6 MEQ/L Estimat Glomerular Filtration Rate 79 ML/MIN Total Creatine Kinase 27 U/L Troponin I LESS THAN 0.02 NG/ML B-Type Natriuretic Peptide 220 PG/ML MDM Medical Decision Making Medical Screen Exam Complete: Yes Emergency Medical Condition: Yes Medical Record Reviewed: Yes Interpretation(s) EKG at 0932: NSR at 73bpm, qt/qtc: 428/454, lvh (ekg similar to ekg from 12/02/16 ) Vital Signs Date Time Temp Pulse Resp B/P (MAP) Pulse Ox O2 Delivery O2 Flow Rate FiO2 12/26/16 09:34 75 16 12/26/16 09:31 98.5 75 16 167/79 (108) 95 Differential Diagnosis Differential includes ACS, arrhythmia, pneumonia, pneumothorax, pneumonia, viral syndrome, electrolyte abnormality Narrative Course Patient was placed on a para machine operator upon arrival to the emergency room. EKG was obtained which shows no acute ST or T-wave changes. X-ray of the chest was ordered. Lab work including CBC, CMP, cardiac enzymes were ordered. Blood cultures were also ordered as I think the patient may have a pneumonia. Patient will be monitored on a para machine operator at this time. Patient is currently chest pain-free, will administer aspirin. Vital Signs Date Time Temp Pulse Resp B/P (MAP) Pulse Ox O2 Delivery O2 Flow Rate FiO2 12/26/16 09:34 75 16 12/26/16 09:31 98.5 75 16 167/79 (108) 95 Laboratory Tests Test 12/26/16 10:00 White Blood Count 11.8 TH/MM3 (4.0-11.0) Red Blood Count 3.71 MIL/MM3 (4.50-5.90) Hemoglobin 10.7 GM/DL (13.0-17.0) Hematocrit 32.6 % (39.0-51.0) Mean Corpuscular Volume 88.0 FL (80.0-100.0) Mean Corpuscular Hemoglobin 28.9 PG (27.0-34.0) Mean Corpuscular Hemoglobin Concent 32.8 % (32.0-36.0) Red Cell Distribution Width 17.7 % (11.6-17.2) Platelet Count 257 TH/MM3 (150-450) Mean Platelet Volume 9.2 FL (7.0-11.0) Neutrophils (%) (Auto) 60.7 % (16.0-70.0) Lymphocytes (%) (Auto) 32.1 % (9.0-44.0) Monocytes (%) (Auto) 6.0 % (0.0-8.0) Eosinophils (%) (Auto) 0.7 % (0.0-4.0) Basophils (%) (Auto) 0.5 % (0.0-2.0) Neutrophils # (Auto) 7.2 TH/MM3 (1.8-7.7) Lymphocytes # (Auto) 3.8 TH/MM3 (1.0-4.8) Monocytes # (Auto) 0.7 TH/MM3 (0-0.9) Eosinophils # (Auto) 0.1 TH/MM3 (0-0.4) Basophils # (Auto) 0.1 TH/MM3 (0-0.2) CBC Comment DIFF FINAL Differential Comment Blood Urea Nitrogen 22 MG/DL (7-18) Creatinine 0.93 MG/DL (0.60-1.30) Random Glucose 140 MG/DL (74-106) Total Protein 8.9 GM/DL (6.4-8.2) Albumin 3.4 GM/DL (3.4-5.0) Calcium Level 8.9 MG/DL (8.5-10.1) Alkaline Phosphatase 85 U/L (45-117) Aspartate Amino Transf (AST/SGOT) 20 U/L (15-37) Alanine Aminotransferase (ALT/SGPT) 27 U/L (12-78) Total Bilirubin 0.5 MG/DL (0.2-1.0) Sodium Level 138 MEQ/L (136-145) Potassium Level 4.0 MEQ/L (3.5-5.1) Chloride Level 105 MEQ/L (98-107) Carbon Dioxide Level 26.9 MEQ/L (21.0-32.0) Anion Gap 6 MEQ/L (5-15) Estimat Glomerular Filtration Rate 79 ML/MIN (>89) Total Creatine Kinase 27 U/L (39-308) Troponin I LESS THAN 0.02 NG/ML B-Type Natriuretic Peptide 220 PG/ML (0-100) Last Impressions Chest X-Ray 12/26/16 09 Signed Impressions: Service Date/Time: Monday, December 26, 2016 09:57 - CONCLUSION: Enlarging consolidation or mass in the right midlung. The patient is scheduled for a CT examination. Gary Pena MD CT Pulmonary Angio: Increased density in the inferior right upper lobe, this could represent an area of inflammatory process versus infectious. Neoplasm could have similar appearance. Patient with no history of cancer in the past. This is most likely an inflammatory process most likely pneumonia, will treat as a pneumonia. I did review CT findings with patient in detail. Azithromycin as well as Rocephin was ordered. Patient reports that he is too weak to go home , plan to observe patient in the hospital Case reviewed with Dr. José who accepts pt to his service Diagnosis Primary Impression: Pneumonia Qualified Codes: J18.1 - Lobar pneumonia, unspecified organism Admitting Information Admitting Physician Requests: Observation Haleigh Senior DO Dec 26, 2016 09:57
[2016-12-26 10:14] LABS: AUTOMATED NEUTROPHIL # 7.2 TH/MM3 (1.8-7.7); BASOPHIL # 0.1 TH/MM3 (0-0.2); BASOPHIL % 0.5 % (0.0-2.0); EOSINOPHIL # 0.1 TH/MM3 (0-0.4); EOSINOPHIL % 0.7 % (0.0-4.0); HEMATOCRIT 32.6 % (39.0-51.0); HEMO FLAGS DIFF FINAL; LYMPH % 32.1 % (9.0-44.0); LYMPHOCYTE # 3.8 TH/MM3 (1.0-4.8); MEAN CORPUSCULAR HEMOGLOBIN 28.9 PG (27.0-34.0); MEAN CORPUSCULAR HGB CONC 32.8 % (32.0-36.0); NEUT % 60.7 % (16.0-70.0); PLATELET COUNT 257 TH/MM3 (150-450); RED BLOOD COUNT 3.71 MIL/MM3 (4.50-5.90); RED CELL DISTRIBUTION WIDTH 17.7 % (11.6-17.2); WHITE BLOOD COUNT 11.8 TH/MM3 (4.0-11.0)
--- NOTE | 2016-12-26 10:29 | RADRPT ---
EXAM DATE/TIME: 12/26/2016 09:57 [facility] COMPARISON: CHEST SINGLE AP, August 01, 2015, 13:38. CHEST SINGLE AP, December 01, 2015, 11:32. CHEST SINGLE AP, December 02, 2016, 14:26. INDICATIONS : Chest pain. MEDICAL HISTORY : Hypertension. Coronary artery disease. SURGICAL HISTORY : Inguinal hernia repair. Discectomy. ENCOUNTER: Initial ACUITY: 1 day PAIN SCORE: 3/10 LOCATION: Bilateral chest FINDINGS: There is an enlarging area of increased density at the lateral right mid lung. The left lung is clear . The heart size is mildly enlarged. CONCLUSION: Enlarging consolidation or mass in the right midlung. The patient is scheduled for a CT examination. Gary Pena MD on December 26, 2016 at 10:26 Board Certified Radiologist. This report was verified electronically.
[2016-12-26 10:41] LABS: ALT (GPT) 27 U/L (12-78); ANION GAP 6 MEQ/L (5-15); AST (GOT) 20 U/L (15-37); BICARBONATE 26.9 MEQ/L (21.0-32.0); BLOOD UREA NITROGEN 22 MG/DL (7-18); CHLORIDE 105 MEQ/L (98-107); GLOMERULAR FILTRATION RATE 79 ML/MIN (>89); SODIUM (NA) 138 MEQ/L (136-145)
[2016-12-26 10:45] LABS: ALKALINE PHOSPHATASE 85 U/L (45-117); TOTAL BILIRUBIN ADULT 0.5 MG/DL (0.2-1.0)
[2016-12-26] MEDS ORDERED: ASPIRIN 81 MG CHEW TAB CHEW ONE (10:45)
[2016-12-26 10:48] LABS: CREATINE KINASE 27 U/L (39-308)
[2016-12-26] MEDS ORDERED: IOHEXOL 350 MG/ML 10 ML VIAL (for RAD DIAG) IVCONTRAST ONE (11:32)
--- NOTE | 2016-12-26 11:50 | RADRPT ---
EXAM DATE/TIME: 12/26/2016 11:17 [facility] COMPARISON: CT PULMONARY ANGIOGRAM, March 25, 2015, 1:39. INDICATIONS : Bilateral chest pain. IV CONTRAST: 100 cc Omnipaque 350 (iohexol) IV RADIATION DOSE: 23.20 CTDIvol (mGy) MEDICAL HISTORY : Hypertension. diabetes SURGICAL HISTORY : None. ENCOUNTER: Initial ACUITY: 1 day PAIN SCALE: 7/10 LOCATION: Bilateral chest TECHNIQUE: Volumetric scanning of the chest was performed using a pulmonary embolism protocol MIP images were re constructed. Using automated exposure control and adjustment of the mA and/or kV according to patien t size, radiation dose was kept as low as reasonably achievable to obtain optimal diagnostic quality images. DICOM format image data is available electronically for review and comparison. Follow-up recommendations for detected pulmonary nodules are based at a minimum on nodule size and pa tient risk factors according to Fleischner Society Guidelines. FINDINGS: PULMONARY ARTERIES: No filling defects are seen in the pulmonary arteries through the segmental level. LUNGS: There is a consolidation/mass seen at the inferior right upper lobe abutting the minor fissure. This measures 6.5 cm in AP dimension, 6.1 cm in transverse dimension and 3.9 cm in height. In addition to abutting the minor fissure in both the right lateral chest wall and the right mediastinum and hilar r egions. The remaining aspects of the lungs are clear. PLEURAE: There is no pleural thickening or pleural effusion. MEDIASTINUM: There are prominent lymph nodes seen in the mediastinum including a 2 cm precarinal lymph node and en larged lymph nodes in the left paratracheal region measuring up to 1.6 cm. These do appear new. Coron juni artery calcifications are present. MUSCULOSKELETAL: Within normal limits for patient age. MISCELLANEOUS: The visualized upper abdominal organs demonstrate no acute abnormality. There is a mild hiatal hernia . CONCLUSION: 1. No pulmonary embolus. 2. Increased density in the inferior right upper lobe. This could represent an area of inflammatory/i nfectious process. A neoplasm could have a similar appearance. 3. Prominent lymph nodes in the mediastinum which are new. These could be inflammatory/reactive versu s neoplastic. Gary Pena MD on December 26, 2016 at 11:41 Board Certified Radiologist. This report was verified electronically.
[2016-12-26] MEDS ORDERED: AZITHROMYCIN INJ 500 MG in SODIUM CHLOR 0.9% 250 ML INJ 250 ML IV ONE (12:15)
[2016-12-26] MEDS ORDERED: cefTRIAXone INJ 1,000 MG in SODIUM CHLORIDE 0.9% INJ 100 ML IV ONE (12:15)
[2016-12-26 13:59] LABS: BLOOD, URINE NEG (NEG); COMMENT (UR) CULT NOT INDICATED; CULTURE IF INDICATED CULT NOT INDICATED; GLUCOSE,URINE NEG (NEG); KETONE, URINE NEG (NEG); MUCUS URINE FEW /lpf (OCC); NITRITE,URINE NEG (NEG); URINE COLOR YELLOW (YELLW/STRAW)
[2016-12-26] MEDS ORDERED: SENNOSIDES 8.6 MG TAB PO PRN (14:45)
[2016-12-26] MEDS ORDERED: ACETAMINOPHEN 325 MG TAB PO PRN (14:45)
[2016-12-26] MEDS ORDERED: ONDANSETRON HCL 4 MG/2 ML VIAL IVP PRN (14:45)
[2016-12-26] MEDS ORDERED: SODIUM CHLORIDE 0.9% FLUSH 10 ML FLUSH IV FLUSH PRN (14:45)
[2016-12-26] MEDS ORDERED: MAGNESIUM HYDROXIDE SUSP 30 ML CUP PO PRN (14:45)
[2016-12-26] MEDS ORDERED: BISACODYL 10 MG SUPP RECTAL PRN (14:45)
[2016-12-26] MEDS ORDERED: NALOXONE HCL 0.4 MG/ML AMP IV PUSH PRN (14:45)
[2016-12-26] MEDS ORDERED: LACTULOSE SYRUP 20 GM/30 ML CUP PO PRN (14:45)
[2016-12-26] MEDS: SODIUM CHLOR 0.45% 1000 ML INJ 1,000 ML IV SCH (14:58)
[2016-12-26] MEDS ORDERED: LORazepam 0.5 MG TAB PO PRN (15:00)
[2016-12-26] MEDS ORDERED: ENOXAPARIN SODIUM 40 MG/0.4 ML SYRINGE SQ SCH (15:00)
[2016-12-26] MEDS ORDERED: cloNIDine HCL 0.1 MG TAB PO PRN (15:00)
[2016-12-26] MEDS ORDERED: ENALAPRILAT 2.5 MG/2 ML VIAL IV PUSH PRN (15:00)
[2016-12-26] MEDS: METOPROLOL TARTRATE 25 MG TAB PO SCH ×2 (15:06→22:37)
[2016-12-26] MEDS: RESP: ALBUTEROL 2.5 MG/IPRATROPIUM 0.5 MG NEB (SCH) NEB ×2 (15:25→21:19)
[2016-12-26] MEDS: LEVOFLOXACIN 750 MG PREMIX INJ 150 ML IV SCH (15:58)
[2016-12-26] MEDS: PANTOPRAZOLE SODIUM 40 MG VIAL IV PUSH SCH (15:58)
[2016-12-26] MEDS: ACETAMINOPHEN/HYDROcodone 325 MG/5 MG TAB PO PRN ×2 (18:29→22:39)
[2016-12-26] MEDS: methylPREDNISolone SOD SUCC 40 MG/1 ML VIAL IV PUSH SCH ×2 (18:31→23:55)
[2016-12-26] MEDS: DOCUSATE SODIUM 50 MG/SENNA 8.6 MG TAB PO SCH (21:00)
[2016-12-26 21:35] LABS: APTT (PATIENT) 27.7 SEC (24.3-30.1); PROTHROMBIN TIME - PATIENT 10.7 SEC (9.8-11.6)
[2016-12-26] MEDS: SODIUM CHLORIDE 0.9% FLUSH 10 ML FLUSH IV FLUSH SCH (22:38)
[2016-12-26] MEDS: ZOLPIDEM TARTRATE 5 MG TAB PO PRN (23:55)
[2016-12-27] VITALS (13 sets, daily range): BP systolic 118–173; BP diastolic 56–90; PULSE 67–85; RESP 16–18; TEMP 98.1–98.6; O2SAT 95–98
[2016-12-27] MEDS: ACETAMINOPHEN/HYDROcodone 325 MG/5 MG TAB PO PRN ×3 (02:54→15:55)
[2016-12-27] MEDS: SODIUM CHLOR 0.45% 1000 ML INJ 1,000 ML IV SCH (05:06)
[2016-12-27] MEDS: methylPREDNISolone SOD SUCC 40 MG/1 ML VIAL IV PUSH SCH ×4 (05:07→23:15)
[2016-12-27 06:58] LABS: AUTOMATED NEUTROPHIL # 5.3 TH/MM3 (1.8-7.7); BASOPHIL % 0.1 % (0.0-2.0); HEMATOCRIT 32.4 % (39.0-51.0); HEMO FLAGS DIFF FINAL; LYMPH % 28.5 % (9.0-44.0); LYMPHOCYTE # 2.1 TH/MM3 (1.0-4.8); MEAN CORPUSCULAR HEMOGLOBIN 28.9 PG (27.0-34.0); MEAN CORPUSCULAR HGB CONC 32.8 % (32.0-36.0); NEUT % 70.4 % (16.0-70.0); PLATELET COUNT 242 TH/MM3 (150-450); RED BLOOD COUNT 3.68 MIL/MM3 (4.50-5.90); RED CELL DISTRIBUTION WIDTH 17.4 % (11.6-17.2); WHITE BLOOD COUNT 7.5 TH/MM3 (4.0-11.0)
[2016-12-27 07:29] LABS: BICARBONATE 23.8 MEQ/L (21.0-32.0)
[2016-12-27 07:31] LABS: POTASSIUM 4.5 MEQ/L (3.5-5.1)
[2016-12-27] MEDS: RESP: ALBUTEROL 2.5 MG/IPRATROPIUM 0.5 MG NEB (SCH) NEB ×4 (07:45→19:32)
[2016-12-27] MEDS: amLODIPine BESYLATE 5 MG TAB PO SCH (08:59)
[2016-12-27] MEDS: SODIUM CHLORIDE 0.9% FLUSH 10 ML FLUSH IV FLUSH SCH ×2 (09:00→21:00)
[2016-12-27] MEDS: METOPROLOL TARTRATE 25 MG TAB PO SCH ×2 (09:00→22:28)
[2016-12-27] MEDS: DOCUSATE SODIUM 50 MG/SENNA 8.6 MG TAB PO SCH ×2 (09:00→22:28)
[2016-12-27] MEDS ORDERED: PNEUMOCOCCAL POLYVALENT INJ 25 MCG/0.5 ML SYR IM ONE (10:00)
[2016-12-27] MEDS ORDERED: INFLUENZA VIRUS VACCINE (QUADRIVALENT) 0.5 ML SYR IM ONE (10:00)
--- NOTE | 2016-12-27 10:27 | EKG ---
Date Performed: 12/26/2016 Time Performed: 09:32:23 PTAGE: 76 years EKG: Sinus rhythm WITH FREQUENT VENTRICULAR PREMATURE COMPLEXES LEFT VENTRICULAR HYPERTROPHY AND ST-T CHANGE ABNORMAL ECG INTERPRETATION BASED ON A DEFAULT AGE OF 40 YEARS Compared to prior tracing no significant change PREVIOUS TRACING : 12/02/2016 21.33 DOCTOR: Heriberto Chang Interpretating Date/Time 12/27/2016 10:25:40
--- NOTE | 2016-12-27 10:32 | MH ---
cc: BAYRON LEONARDO MD DATE OF ADMISSION: 12/26/2016 CHIEF COMPLAINT Chest pain and weakness and coughing. HISTORY OF PRESENT ILLNESS Abdelrahman Talbot is a 76-year-old [place] male who I saw in my office last week with complaints of coughing. He was continuing to smoke heavily. I gave him azithromycin and a steroid pack and Pro-Air. He unfortunately did not get those medications, he states he was too weak. He was continuing to decline at home and started complaining of chest pain. He presented to the emergency room and was found to have pneumonia and chest pain. Sepsis protocol was begun. The patient was given Rocephin and azithromycin and CT angiogram. He states that he is doing somewhat better, however, he still feels the chest fullness and coughing and weakness. He states he has had a hernia for quite sometime and in my office found that he had a large scrotal hernia and we are getting him set up and referred him to Dr. Kennedy, so he was supposed to go there this week. IMAGING STUDIES CT angiogram shows no PE, right upper lobe density and prominent lymph nodes in the mediastinum. Chest x-ray shows enlarging consolidation or mass in the right midlung. LABORATORY DATA WBCs 11.8, now 7.5, hemoglobin 10.6, platelets are 242. Chemistry shows BUN of 26, glucose 235, A1c is pending, calcium 9.4. Urine shows few mucous and dehydration. MEDICATIONS Home medications: 1. Metoprolol tartrate 25 b.i.d. 2. Amlodipine 5 mg daily. ALLERGIES NO KNOWN DRUG ALLERGIES. PAST MEDICAL HISTORY 1. Smoker. 2. Depression. 3. Coronary artery disease. 4. Chest pain. 5. Rbwz-sj-[id number]. 6. Hypertension. PAST SURGICAL HISTORY Herniorrhaphy and diskectomy. FAMILY HISTORY Father with heart attack, unknown age. Mother unknown, states she was elder. SOCIAL HISTORY One pack per day smoker. No alcohol use or substance abuse. REVIEW OF SYSTEMS Review of systems negative 14-point review of systems except as above. VITAL SIGNS Blood pressure 158/74, pulse 78, respirations 18, temperature 98.2, 02 is 95% on room air. PHYSICAL EXAMINATION GENERAL: He is an alert elder male. He is very weak, looks disheveled and is short of breath when speaking. HEENT: Oropharynx is clear. Carotids are clear. No JVD. NECK: Supple. No lymphadenopathy. HEAD: Normocephalic, atraumatic. CHEST: Right side he has mid and upper lobe crackles. Slight patchy rhonchi, otherwise. CARDIOVASCULAR: Regular rate and rhythm. No murmurs, rubs, clicks or gallops. ABDOMEN: Soft, nontender. No rebound or guarding. EXTREMITIES: No edema. SKIN: Skin is clear. NEURO: A&O x 2. No apparent distress. Cranial nerves are intact. Strength is 3/5 in upper and lower extremities. ASSESSMENT 1. Chest pain. 2. Pneumonia. 3. Diabetes. 4. Smoker. 5. Hypertension. 6. Lung mass. 7. Leukocytosis. 8. Scrotal hernia. PLAN 1. Observation admission for pneumonia and chest pain. 2. Consult to cardiology and pulmonology. 3. Check blood cultures. 4. Check A1c. 5. Check a.m. CBC and BMP. 6. IV azithromycin. 7. IV Levaquin. 8. IV fluids. 9. [place] p.r.n. 10. Norvasc daily. 11. Will restart metoprolol. 12. Ambien p.r.n. 13. GI prophylaxis Protonix 40 IV daily. 14. Solu-Medrol 80 mg IV q.6 hours. 15. Enalapril p.r.n. 16. Telemetry. 17. TANYA tamayo. 18. Physical therapy. 19. Surgical consult for massive scrotal hernia. Bayron Leonardo MD RP/THEA /9:53 AM /10:05 AM
[2016-12-27] MEDS ORDERED: SODIUM CHLOR 0.45% 1000 ML INJ 1,000 ML IV SCH (11:42)
[2016-12-27] MEDS ORDERED: RESP: ALBUTEROL CONC 2.5 MG/0.5 ML NEB NEB SCH (11:45)
[2016-12-27] MEDS ORDERED: RESP: LIDOCAINE HCL 4% PF 5 ML NEB NEB SCH (11:45)
[2016-12-27] MEDS: AZITHROMYCIN INJ 500 MG in SODIUM CHLOR 0.9% 250 ML INJ 250 ML IV SCH (12:13)
--- NOTE | 2016-12-27 13:08 | MB ---
cc: BAYRON LEONARDO MD, R. STEVEN M.D. DATE OF CONSULTATION: 12/27/2016 HISTORY OF PRESENT ILLNESS Mr. Talbot is a 76-year-old white male who I saw in the emergency room this morning. He presented yesterday with chest pain, cough and congestion. He has been a heavy smoker all of his adult life up to the present time. He was seen two weeks ago for chest pain and went through the chest pain center. The final diagnosis was atypical chest pain and hypertension. He had a cardiac stress test with Dr. Neumann indicating no electrocardiographic changes to suggest ischemia, although he did have resting EKG changes. It was felt that he had a low probability of ischemia but follow-up was recommended. BNP was elevated at 342 during that admission, although his CPKs and troponins were negative. The patient was seen by Dr. Leonardo, his physician, as an outpatient. He was prescribed antibiotics but the patient never filled them. A nuclear medicine scan was also performed on December 03, and although he had no significant reversible perfusion abnormality he had fixed anterior and inferior wall defects with hypokinesia, an enlarged chamber and a decreased EF at 34%. Again follow-up was recommended. The patient currently has no hemoptysis. He has had a cough though with heavy sputum production and some shortness of breath. He is also complaining of a large hernia. He was actually being prepared to see Dr. Kennedy about that. ADDITIONAL PAST HISTORY 1. Depression. 2. Hypertension. 3. Previous herniorrhaphy. 4. Disc surgery. FAMILY HISTORY Positive for coronary disease. SOCIAL HISTORY Smokes a pack per day. No alcohol use. Lives with a female friend. from his . ALLERGIES Allergies to medicines are none. MEDICATIONS Current medications are reviewed in the EMR. Lovenox had been ordered prophylactically. I discontinued that anticipating he will need bronchoscopy with biopsy. REVIEW OF SYSTEMS Appetite has been poor. He has had no nausea or vomiting. No abdominal pain. No swelling in his legs. The chest pain is not particularly exertional, it is a constant pressure. No night sweats. No recent travel. PHYSICAL EXAMINATION VITAL SIGNS: Temperature 98 degrees, blood pressure 170/70, pulse 80, respirations 16-18. Sat on room air 96%. HEENT: Sclera anicteric. NECK: No adenopathy palpable in the neck or supraclavicular region. CHEST: Somewhat diminished. Some minimal scattered congestion in the right lung. No wheezing. HEART: Regular rhythm. No harsh murmur. EXTREMITIES: No pitting edema or calf tenderness. LABORATORY White count 7500, hemoglobin 10.6, platelets normal. BUN 26, creatinine 0.8. BNP 220. Troponin and CK x1 negative APTT and INR normal. IMAGING Chest CT scan: No evidence of pulmonary embolism. Mass/infiltrate in the right upper lobe with associated mediastinal adenopathy including left paratracheal adenopathy. DISCUSSION Mr. Talbot presents with persistent cough, infiltrate/mass in the right upper lobe with associated adenopathy and a prolonged smoking history, raising a strong suspicion of an underlying malignancy. He has been started on antibiotics and bronchodilators, says he is feeling a little better than on presentation. Chest pain seems to have resolved. In light of the recent evaluation, the low ejection fraction and chest pain, I have asked cardiology to review him as I do think bronchoscopy is indicated but I am not certain that his cardiovascular status is actually stable. We have tentatively scheduled him for the procedure tomorrow, but again will await cardiac clearance. Will continue antibiotics and aerosolized bronchodilators. I have reviewed my plan with Mr. Talbot including the procedure if and when we can proceed with that. I have explained in simple terms so that he understands what it involves and we also discussed potential risk factors including the risk of a general anesthetic and in particular the risk of a biopsy which would include possible hemorrhage or pneumothorax. Further diagnostic and/or therapeutic intervention will depend on his ongoing clinical course and initial response to therapy. R. MD SVETLANA Ho/ALEXANDRO /12:24 PM /12:50 PM
--- NOTE | 2016-12-27 14:08 | MB ---
cc: MATTHEW POON DO DATE OF CONSULTATION: 12/27/2016 REASON FOR CONSULTATION Cardiac risk assessment, chest pain. HISTORY OF PRESENT ILLNESS Abdelrahman Talbot is a pleasant 76-year-old male who presented to [facility] due to weakness, chest pain and coughing. He was previously seen by Dr. José last week in the office complaining of coughing. He was given azithromycin and a steroid pack as well as ProAir and did not end up getting those medications. He has been continually getting weak with more coughing and chest pain. He states that the chest pain comes on worse with any type of cough. He does not get it with walking. Since he has coughed up a bunch of buckley mucus his chest pain is now gone. He was seen by Dr. Meek who is considering a possible bronchoscopy, and since the patient has had some chest pain I was asked to see him for risk assessment. He was previously here in November 2016 with atypical chest pain and underwent stress testing which showed no ischemia. In seeing him at this time he denies chest pain, shortness of breath, nausea or vomiting. PAST MEDICAL HISTORY 1. Depression. 2. Hypertension. 3. Coronary artery disease. PAST SURGICAL HISTORY 1. Herniorrhaphy. 2. Discectomy. ALLERGIES No known drug allergies. MEDICATIONS 1. Metoprolol tartrate 25 mg b.i.d. 2. Norvasc 5 mg daily. FAMILY HISTORY Denies premature coronary artery disease or sudden cardiac within the family. SOCIAL HISTORY The patient smokes a pack of cigarettes per day. Denies alcohol abuse. Denies drug abuse. REVIEW OF SYSTEMS 14-systems were reviewed including osteopathic with pertinent positives and negatives as above, otherwise negative. PHYSICAL EXAMINATION VITAL SIGNS: Temperature 98.2, heart rate 78, blood pressure 158/74, respirations 16. Pulse ox 95% on room air. GENERAL: In general the patient appears well, in no acute distress, alert, awake and oriented x3. HEENT: Extraocular muscles intact. Mucous membranes moist. NECK: Supple. No JVD at 45 degrees. No carotid bruits heard bilaterally. Carotid upstroke is brisk in nature. HEART: Regular rate and rhythm. Positive first and second heart sounds with no murmurs, gallops or rubs. LUNGS: Decreased breath sounds bilaterally but no overt wheezes, rales or rhonchi. ABDOMEN: Soft, nontender, nondistended. No organomegaly noted. EXTREMITIES: No clubbing, cyanosis or edema. Femoral and distal pulses intact bilaterally. NEUROLOGIC: No focal deficits. MUSCULOSKELETAL: Osteopathically mild kyphoscoliosis, no lordosis or paraspinal tender points. LABORATORY Hemoglobin 10.6, hematocrit 32.4, platelets 242. Potassium 4.5, BUN 26, creatinine 0.79. Troponin less than 0.02. ELECTROCARDIOGRAM Electrocardiogram (December 26, 2016 at 0932): Sinus rhythm with PVCs, LVH with secondary ST-T wave changes, no significant change from previous. IMPRESSION 1. Atypical chest pain. 2. Right lobe infiltrate/mass concerning for possible malignancy. 3. Tobacco abuse. 4. Recent pharmacologic nuclear stress test (December 03, 2016): Fixed defect in the anterior and inferior anne, no significant stress-induced perfusion abnormality, ejection fraction 38%. 5. Preoperative evaluation. RECOMMENDATIONS 1. Mr. Talbot is to undergo a bronchoscopy by Dr. Meek tomorrow. From my standpoint he is currently not in acute coronary syndrome or heart failure, and he is hemodynamically and electrically stable. From that standpoint he may proceed at an intermediate cardiovascular risk. 2. He recently had a stress test showing no ischemia but does have scarring of the anterior and inferior anne which may lead to ischemic cardiomyopathy. He seems to be at this point compensated well without acute systolic heart failure. 3. Will plan to keep him on his current medications including metoprolol and Norvasc preoperatively as his blood pressure is elevated. This may be further exacerbated by him currently being placed on steroids. 4. Further recommendations will be made based on the hospital course. Thank you for allowing me to see Abdelrahman Talbot. If there are any questions, please do not hesitate to call. Matthew Poon DO VGP/BT /1:32 PM /1:51 PM
[2016-12-27] MEDS ORDERED: METOPROLOL TARTRATE 25 MG TAB PO PRN (14:15)
[2016-12-27] MEDS ORDERED: INSULIN HUMAN REGULAR 1,000 UNITS/10 ML VIAL SQ PRN (14:15)
[2016-12-27] MEDS ORDERED: SODIUM CHLORID 0.9% 500 ML IV PRN (14:15)
[2016-12-27] MEDS ORDERED: CHLORHEXIDINE GLUCONATE 2 % 1 PACK (2 CLOTHS) TOPICAL PRN (14:15)
[2016-12-27] MEDS ORDERED: POVIDONE IODINE 5% (ANTISEPSIS KIT) 4 APPLICATIONS EACH NARE PRN (14:15)
[2016-12-27] MEDS ORDERED: LACTATED RINGER'S 1000 ML IV PRN (14:15)
[2016-12-27] MEDS: PANTOPRAZOLE SODIUM 40 MG VIAL IV PUSH SCH (15:54)
[2016-12-27] MEDS: LEVOFLOXACIN 750 MG PREMIX INJ 150 ML IV SCH (15:54)
[2016-12-27 16:11] LABS: HEMOGLOBIN A1b 2.3 %; HEMOGLOBIN Ao 82.6 %; HEMOGLOBIN LA1C 2.3 %; HEMOGLOBIN P3 5.9 %
[2016-12-27] MEDS ORDERED: GLUCAGON 1 MG/ML VIAL OTHER PRN (21:15)
[2016-12-27] MEDS ORDERED: DEXTROSE 50% IN WATER 50 ML VIAL(D50) IV PUSH PRN (21:15)
[2016-12-27] MEDS: LOW DOSE INSULIN NOVOLOG SUPPLEMENTAL SCALE SQ SCH (22:29)
[2016-12-27] MEDS: ZOLPIDEM TARTRATE 5 MG TAB PO PRN (23:15)
[2016-12-28] VITALS (15 sets, daily range): BP systolic 111–212; BP diastolic 58–101; PULSE 64–78; RESP 16–18; TEMP 97.5–98.6; O2SAT 96–100
[2016-12-28] MEDS: ACETAMINOPHEN/HYDROcodone 325 MG/5 MG TAB PO PRN ×4 (01:46→22:30)
--- NOTE | 2016-12-28 05:32 | MB ---
cc: KRISTINA HUGHES M.D. DATE OF CONSULTATION 12/27/2016 REASON FOR CONSULTATION Giant recurrent left inguinal scrotal hernia. HISTORY OF PRESENT ILLNESS Mr. Wray is a very pleasant 76-year-old patient of Dr. José who was admitted today for shortness of breath secondary to coughing. Apparently he saw Dr. José in the office last week, was having problems with chest pain, shortness of breath. He was given inhalers and antibiotics and steroid pack and he failed to improve. He came to the emergency department today where he reports continued shortness of breath. He is currently being admitted for workup of his chest pain and shortness of breath, to rule out possible pneumonia. Dr. José asked Dr. Kennedy to see the patient for his recurrent giant left inguinal scrotal hernia. Apparently the patient had an outpatient appointment with Dr. Kennedy this week to follow up for the hernia. The hernia was repaired by Dr. Kennedy in 2014 via laparoscopic approach. The patient reports that he has had a giant left inguinal hernia for several months and he has been trying to get in to see Dr. Kennedy to talk about it. The patient denies any significant pain in the left hernia. He states that it is the same size it has always been which is quite large. He states the hernia has been down in his scrotum for quite some time. The patient denies any nausea, vomiting. He denies any changes in his bowel habits. PAST MEDICAL HISTORY 1. Coronary artery disease. 2. COPD. 3. Hypertension. PAST SURGICAL HISTORY 1. He has had a laparoscopic bilateral inguinal hernia repair by Dr. Kennedy in 2013 via transabdominal approach with [place]-[employer] DualMesh. 2. He has had some lumbar back surgery according to him. MEDICATIONS His medication list is extensive. Please see the chart. ALLERGIES He has no known drug allergies. SOCIAL HISTORY Heavy smoker, one to two packs a day. Denies alcohol use. He lives here locally. PHYSICIAN He is under the care of Dr. Shah, his primary. REVIEW OF SYSTEMS The patient complains of chest pain, shortness of breath and a productive cough. He denies any abdominal pain. He denies any significant pain in the left groin. PHYSICAL EXAMINATION VITAL SIGNS: Temperature is 98, pulse is 80, blood pressure 170/70, respiratory rate 20. GENERAL: A pleasant, chronically ill-appearing gentleman sitting in his hospital bed. HEENT: Pupils equal, round, reactive to light. Sclerae are white. Oropharynx is clear and moist. NECK: Supple. No masses. LUNGS: Clear to auscultation bilaterally. Diminished in both bases. He does have some coarse upper airway sounds. HEART: S1-S2, no murmur. ABDOMEN: Soft, nontender, nondistended. : He has a giant left inguinal scrotal hernia that is reducible with direct pressure. As soon as I reduce it, it pops right back out. The testicle is compressed in the left hemiscrotum but is nontender. He has no evidence of an obvious right inguinal hernia. EXTREMITIES: Free range of motion x4. NEUROLOGICAL: Alert and oriented x3. LABORATORY DATA White blood cell count 11, hemoglobin 10, platelet count is 257. Electrolytes essentially within normal limits. 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 PLAN At this point the hernia appears to be at its baseline. It is quite large but it has a very broad neck and does not appear incarcerated or strangulated at this time. I have advised the patient that his lung issue needs to be addressed first. I have asked him to please call our office when he gets out of the hospital and follow up with Dr. Kennedy as an outpatient. Dr. Kennedy was made aware of the patient and he agrees with the plan. We will gladly see the patient have an as-needed basis while he is hospitalized at this time for his lung tissue. If there is any question or concern about the hernia been incarcerated or strangulated, please give us a call and we will gladly see him back. The hernia was soft and completely reducible today when I saw the patient in the emergency department. Thanks so much for allowing us to participate in his care. MD IAN Lew/ANKUSH /5:44 PM /5:17 AM
[2016-12-28] MEDS: methylPREDNISolone SOD SUCC 40 MG/1 ML VIAL IV PUSH SCH ×3 (06:01→17:25)
[2016-12-28] MEDS: RESP: ALBUTEROL 2.5 MG/IPRATROPIUM 0.5 MG NEB (SCH) NEB ×4 (07:41→20:17)
[2016-12-28] MEDS: MORPHINE SULFATE 4 MG/ML INJ IV PUSH PRN (07:45)
[2016-12-28] MEDS: LOW DOSE INSULIN NOVOLOG SUPPLEMENTAL SCALE SQ SCH ×4 (08:00→22:30)
[2016-12-28] MEDS: SODIUM CHLORIDE 0.9% FLUSH 10 ML FLUSH IV FLUSH SCH ×2 (10:16→22:03)
[2016-12-28] MEDS: DOCUSATE SODIUM 50 MG/SENNA 8.6 MG TAB PO SCH ×2 (10:17→21:00)
[2016-12-28] MEDS: METOPROLOL TARTRATE 25 MG TAB PO SCH ×2 (10:18→22:02)
[2016-12-28] MEDS: amLODIPine BESYLATE 5 MG TAB PO SCH (10:18)
--- NOTE | 2016-12-28 10:18 | HHI.FPPN ---
Objective Vitals Vital Signs Date Time Temp Pulse Resp B/P (MAP) Pulse Ox O2 Delivery O2 Flow Rate FiO2 12/28/16 07:43 98 12/28/16 07:43 18 12/28/16 07:07 97.5 70 16 212/101 (138) 97 12/28/16 04:06 98.6 77 17 126/64 (84) 96 12/28/16 03:58 66 12/28/16 01:43 68 18 124/64 (84) 97 12/28/16 00:05 76 12/27/16 23:38 98.3 77 18 130/61 (84) 97 12/27/16 22:23 79 18 137/63 (87) 97 12/27/16 20:03 85 12/27/16 20:03 98.1 84 17 120/56 (77) 96 12/27/16 19:34 97 12/27/16 17:12 98.6 72 16 118/57 (77) 97 12/27/16 16:01 98.6 78 16 155/69 (97) 98 12/27/16 12:21 98.4 79 16 173/74 (107) 97 12/27/16 10:21 76 I/O 12/27/16 12/27/16 12/27/16 12/28/16 12/28/16 12/28/16 07:00 15:00 23:00 07:00 15:00 23:00 Intake Total 1000 ml 500 ml Output Total 375 ml 100 ml Balance 1000 ml 125 ml -100 ml IV Total 1000 ml 500 ml Output Urine Total 375 ml 100 ml Result Diagram: 12/27/1637 12/27/1637 A/P Assessment and Plan ASSESSMENT AND PLAN: Chest pain. Pneumonia: IV ABX, IV STEROIDS, FOLLOWUP BLOOD CULTURES. Diabetes: SSI Smoker. Hypertension. Lung mass: BRONCH TODAY BY DR HUGHES. Leukocytosis. Scrotal hernia: SEEN BY DR HUGHES, FOLLOWUP DR LIGHT OUTPT. GI prophylaxis Protonix 40 IV daily. Telemetry. DVT PROPHYLAXIS: TANYA hose. Physical therapy. DISPOSITION: SNF OR [facility] PT HAS BEEN OBS FOR TWO MN, REQUIRES FURTHER WORKUP ABOVE. DC 1-3 DAYS. Osmani José MD Dec 28, 2016 10:18
[2016-12-28 10:30] LABS: AUTOMATED NEUTROPHIL # 13.6 TH/MM3 (1.8-7.7); BASOPHIL % 0.1 % (0.0-2.0); HEMATOCRIT 30.2 % (39.0-51.0); HEMO FLAGS DIFF FINAL; LYMPH % 7.3 % (9.0-44.0); LYMPHOCYTE # 1.1 TH/MM3 (1.0-4.8); MEAN CELL VOLUME 88.3 FL (80.0-100.0); MEAN CORPUSCULAR HEMOGLOBIN 29.1 PG (27.0-34.0); MONO % 1.7 % (0.0-8.0); NEUT % 90.9 % (16.0-70.0); PLATELET COUNT 233 TH/MM3 (150-450); RED BLOOD COUNT 3.43 MIL/MM3 (4.50-5.90); RED CELL DISTRIBUTION WIDTH 17.6 % (11.6-17.2); WHITE BLOOD COUNT 14.9 TH/MM3 (4.0-11.0)
[2016-12-28 11:14] LABS: POTASSIUM 3.8 MEQ/L (3.5-5.1)
[2016-12-28 11:38] LABS: BICARBONATE 23.8 MEQ/L (21.0-32.0)
[2016-12-28] MEDS ORDERED: GLYCOPYRROLATE 1 MG/5 ML SYRINGE IV PUSH ONE (12:00)
[2016-12-28] MEDS ORDERED: NEOSTIGMINE 3 MG/3 ML SYR IV ONE (12:00)
[2016-12-28] MEDS ORDERED: ROCURONIUM INJ 50 MG/5 ML SYRINGE IV PUSH ONE (12:00)
[2016-12-28] MEDS ORDERED: SUCCINYLCHOLINE CHLORIDE 100 MG/5 ML SYRINGE IV PUSH ONE (12:00)
[2016-12-28] MEDS ORDERED: LIDOCAINE HCL 1% PF 5 ML AMPULE OTHER ONE (12:00)
[2016-12-28] MEDS ORDERED: PROPOFOL 200 MG/20 ML AMP IV ONE (12:00)
[2016-12-28] MEDS ORDERED: ePHEDrine/NS 25 MG/5 ML SYR IV ONE (12:00)
--- NOTE | 2016-12-28 12:24 | PD.CARD.PN ---
Subjective Subjective Remarks No events overnight No chest pain/SOB Objective Medications Current Medications Medications (Trade) Dose Ordered Sig/Rosa Route Start Time Stop Time Status Last Admin (NS Flush) 2 ml UNSCH PRN IV FLUSH 12/26/16 14:45 (NS Flush) 2 ml BID IV FLUSH 12/26/16 21:00 12/28/16 10:16 (Tylenol) 650 mg Q4H PRN PO 12/26/16 14:45 (Zofran Inj) 4 mg Q6H PRN IVP 12/26/16 14:45 12/28/16 07:24 (Ambien) 5 mg HS PRN PO 12/26/16 14:45 12/27/16 23:15 (Narcan Inj) 0.4 mg UNSCH PRN IV PUSH 12/26/16 14:45 (Salena-Colace) 1 tab BID PO 12/26/16 21:00 12/28/16 10:17 (Milk Of Magnesia Liq) 30 ml Q12H PRN PO 12/26/16 14:45 (Senokot) 17.2 mg Q12H PRN PO 12/26/16 14:45 (Dulcolax Supp) 10 mg DAILY PRN RECTAL 12/26/16 14:45 (Lactulose Liq) 30 ml DAILY PRN PO 12/26/16 14:45 (Norvasc) 5 mg DAILY PO 12/27/16 09:00 12/28/16 10:18 (Lopressor) 25 mg BID PO 12/26/16 15:00 12/28/16 10:18 (Ativan) 0.5 mg Q8H PRN PO 12/26/16 15:00 Azithromycin 500 mg/Sodium Chloride 250 ml @ 250 mls/hr Q24H IV 12/27/16 13:00 12/27/16 12:13 (Duoneb Neb) 1 ampule QID NEB NEB 12/26/16 16:00 12/28/16 11:45 (Vasotec Inj) 2.5 mg Q6H PRN IV PUSH 12/26/16 15:00 Levofloxacin/ Dextrose 150 ml @ 100 mls/hr Q24H IV 12/26/16 16:00 12/27/16 15:54 ([place] 5-325 Mg) 1 tab Q4H PRN PO 12/26/16 15:00 12/28/16 06:30 (SoluMEDROL INJ) 80 mg Q6HR IV PUSH 12/26/16 18:00 12/28/16 06:01 (Protonix Inj) 40 mg Q24H IV PUSH 12/26/16 16:00 12/27/16 15:54 (Catapres) 0.1 mg Q6H PRN PO 12/26/16 15:00 12/27/16 15:55 Sodium Chloride 1,000 ml @ 0 mls/hr Q0M IV 12/27/16 11:42 (Albuterol Concentrated Neb) 2.5 mg MANAGER NET NEB 12/27/16 11:45 12/31/16 11:44 (Lidocaine Pf 4% Neb) 3 ml MANAGER NET NEB 12/27/16 11:45 12/31/16 11:44 Lactated Ringer's 1,000 ml @ 30 mls/hr Q24H PRN IV 12/27/16 14:15 12/30/16 14:14 Sodium Chloride 500 ml @ 30 mls/hr [id number] PRN IV 12/27/16 14:15 12/30/16 14:14 (Lopressor) 25 mg MANAGER NET PRN PO 12/27/16 14:15 12/30/16 14:14 (Betadine 5% Antisepsis Kit) 1 applic MANAGER NET PRN EACH NARE 12/27/16 14:15 12/30/16 14:14 (Chlorhexidine 2% Cloth) 3 pack MANAGER NET PRN TOPICAL 12/27/16 14:15 12/30/16 14:14 (D50w (Vial) Inj) 50 ml UNSCH PRN IV PUSH 12/27/16 21:15 (Glucagon Inj) 1 mg UNSCH PRN OTHER 12/27/16 21:15 (NovoLOG SUPPLEMENTAL SCALE) 1 ACHS SLIDING SCALE SQ 12/27/16 22:00 12/27/16 22:29 (Morphine Inj) 3 mg Q4H PRN IV PUSH 12/28/16 08:00 12/28/16 07:45 Vital Signs / I&O Vital Signs Date Time Temp Pulse Resp B/P (MAP) Pulse Ox O2 Delivery O2 Flow Rate FiO2 12/28/16 10:27 98.6 75 16 148/70 (96) 98 12/28/16 10:15 148/70 (96) 12/28/16 08:00 64 12/28/16 07:43 98 12/28/16 07:43 18 12/28/16 07:07 97.5 70 16 212/101 (138) 97 12/28/16 04:06 98.6 77 17 126/64 (84) 96 12/28/16 03:58 66 12/28/16 01:43 68 18 124/64 (84) 97 12/28/16 00:05 76 12/27/16 23:38 98.3 77 18 130/61 (84) 97 12/27/16 22:23 79 18 137/63 (87) 97 12/27/16 20:03 85 12/27/16 20:03 98.1 84 17 120/56 (77) 96 12/27/16 19:34 97 12/27/16 17:12 98.6 72 16 118/57 (77) 97 12/27/16 16:01 98.6 78 16 155/69 (97) 98 I/O 12/27/16 12/27/16 12/27/16 12/28/16 12/28/16 12/28/16 07:00 15:00 23:00 07:00 15:00 23:00 Intake Total 1000 ml 750 ml 150 ml Output Total 375 ml 100 ml Balance 1000 ml 375 ml 50 ml IV Total 1000 ml 750 ml 150 ml Output Urine Total 375 ml 100 ml Physical Exam GENERAL: NAD, AAOx3 SKIN: Warm and dry. HEAD: Atraumatic. Normocephalic. EYES: Pupils equal and round. No scleral icterus. No injection or drainage. ENT: No nasal bleeding or discharge. Mucous membranes pink and moist. NECK: Trachea midline. No JVD. CARDIOVASCULAR: Regular rate and rhythm. RESPIRATORY: No accessory muscle use. Decreased breath sounds bilaterally GASTROINTESTINAL: Abdomen soft, non-tender, nondistended. Hepatic and splenic margins not palpable. MUSCULOSKELETAL: Extremities without clubbing, cyanosis, or edema. No obvious deformities. NEUROLOGICAL: Awake and alert. No obvious cranial nerve deficits. Motor grossly within normal limits. Five out of 5 muscle strength in the arms and legs. Normal speech. PSYCHIATRIC: Appropriate mood and affect; insight and judgment normal. Laboratory Laboratory Tests Test 12/28/16 09:42 White Blood Count 14.9 TH/MM3 Red Blood Count 3.43 MIL/MM3 Hemoglobin 10.0 GM/DL Hematocrit 30.2 % Mean Corpuscular Volume 88.3 FL Mean Corpuscular Hemoglobin 29.1 PG Mean Corpuscular Hemoglobin Concent 33.0 % Red Cell Distribution Width 17.6 % Platelet Count 233 TH/MM3 Mean Platelet Volume 9.7 FL Neutrophils (%) (Auto) 90.9 % Lymphocytes (%) (Auto) 7.3 % Monocytes (%) (Auto) 1.7 % Eosinophils (%) (Auto) 0.0 % Basophils (%) (Auto) 0.1 % Neutrophils # (Auto) 13.6 TH/MM3 Lymphocytes # (Auto) 1.1 TH/MM3 Monocytes # (Auto) 0.3 TH/MM3 Eosinophils # (Auto) 0.0 TH/MM3 Basophils # (Auto) 0.0 TH/MM3 CBC Comment DIFF FINAL Differential Comment Blood Urea Nitrogen 32 MG/DL Creatinine 0.92 MG/DL Random Glucose 276 MG/DL Calcium Level 8.6 MG/DL Sodium Level 140 MEQ/L Potassium Level 3.8 MEQ/L Chloride Level 108 MEQ/L Carbon Dioxide Level 23.8 MEQ/L Anion Gap 8 MEQ/L Estimat Glomerular Filtration Rate 80 ML/MIN Assessment and Plan Problem List: (1) Chest pain, atypical ICD Codes: R07.89 - Other chest pain Status: Acute (2) Pneumonia ICD Codes: J18.9 - Pneumonia, unspecified organism Status: Acute (3) Chronic ischemic heart disease, unspecified ICD Codes: I25.9 - Chronic ischemic heart disease, unspecified (4) Tobacco abuse ICD Codes: Z72.0 - Tobacco use Status: Acute (5) DM (diabetes mellitus) ICD Codes: E11.9 - Type 2 diabetes mellitus without complications Status: Acute Assessment and Plan 1) No further chest pain Atypical chest pain Negative nuclear myocardial perfusion stress test 2) May proceed to bronchoscopy 3) HTN Blood pressure mostly controlled at this time Problem Qualifiers (1) Pneumonia: Qualified Codes: J18.1 - Lobar pneumonia, unspecified organism Matthew Rodriguez DO Dec 28, 2016 12:24
[2016-12-28] MEDS: AZITHROMYCIN INJ 500 MG in SODIUM CHLOR 0.9% 250 ML INJ 250 ML IV SCH (12:53)
[2016-12-28] MEDS ORDERED: EPINEPHrine HCL (1:1000) 1 MG/ML VIAL ONE (13:30)
[2016-12-28] MEDS ORDERED: LIDOCAINE HCL 2% 50 ML VIAL ONE (13:30)
[2016-12-28] MEDS ORDERED: RESP: ALBUTEROL CONC 2.5 MG/0.5 ML NEB ONE (13:40)
[2016-12-28] MEDS ORDERED: RESP: LIDOCAINE HCL 4% PF 5 ML NEB ONE (13:41)
[2016-12-28] MEDS ORDERED: DO NOT ADM ANY ANTICOAGULANT DRUGS PRN (15:55)
[2016-12-28] MEDS ORDERED: RESP: ALBUTEROL 2.5 MG/3 ML NEB (PRN) NEB (16:00)
[2016-12-28] MEDS: PANTOPRAZOLE SODIUM 40 MG VIAL IV PUSH SCH (16:47)
[2016-12-28] MEDS: LEVOFLOXACIN 750 MG PREMIX INJ 150 ML IV SCH (17:25)
--- NOTE | 2016-12-28 23:18 | MR ---
cc: EFREN HUGHES DATE 12/28/16 PROCEDURE Bronchoscopy INDICATION Right upper lobe mass, suspected malignancy. PROCEDURE IN DETAIL After informed consent was obtained, the patient underwent diagnostic bronchoscopy with general anesthesia. Examination of the mid to distal trachea revealed scattered purulent secretions but no other endobronchial pathology. Examination of the left main stem bronchus, left upper lobe and lower lobes again revealed scattered purulent secretions but no endobronchial pathology. Examination of the right main stem bronchus down to the takeoff of the right upper lobe was normal. Examination of the right middle lobe and lower lobe orifices was entirely unremarkable again with only scattered purulent secretions. The airways were cleared of secretions, washed and submitted for cultures. Examination of the right upper lobe was normal at the takeoff, but within the anterior segment there was an obvious exophytic lesion in the right upper lobe. This had the appearance of malignancy. A needle aspirate was taken. Several slides were made and the remainder of that was submitted in [facility]. The laboratory tech smeared those slides and took them to pathology with an initial interpretation of malignant cells. I then returned to the right upper lobe lesion, took washings for cytology, brushings for cytology and multiple biopsies for routine pathology. There was minimal bleeding. No active bleeding at the end of the procedure. The patient tolerated the procedure well. He is being transferred to recovery. In summary, the patient had scattered purulent secretions, may be an indication of infection. Cultures were sent. He also has an obvious lesion in the anterior segment of the right upper lobe, probably cancer based on initial wet read with further specimen submitted. R. MD SVETLANA Ho/ /3:49 PM /11:04 PM
[2016-12-29] VITALS (7 sets, daily range): BP systolic 128–163; BP diastolic 61–82; PULSE 67–76; RESP 16–18; TEMP 96.2–98.1; O2SAT 96–99
[2016-12-29] MEDS: methylPREDNISolone SOD SUCC 40 MG/1 ML VIAL IV PUSH SCH ×4 (00:18→20:49)
[2016-12-29] MEDS: MORPHINE SULFATE 4 MG/ML INJ IV PUSH PRN (01:56)
[2016-12-29 05:36] LABS: AUTOMATED NEUTROPHIL # 11.6 TH/MM3 (1.8-7.7); BASOPHIL % 0.1 % (0.0-2.0); HEMATOCRIT 29.5 % (39.0-51.0); HEMO FLAGS DIFF FINAL; LYMPH % 9.5 % (9.0-44.0); LYMPHOCYTE # 1.3 TH/MM3 (1.0-4.8); MEAN CELL VOLUME 88.1 FL (80.0-100.0); MEAN CORPUSCULAR HEMOGLOBIN 29.2 PG (27.0-34.0); MEAN CORPUSCULAR HGB CONC 33.2 % (32.0-36.0); MONO % 2.7 % (0.0-8.0); NEUT % 87.7 % (16.0-70.0); PLATELET COUNT 223 TH/MM3 (150-450); RED BLOOD COUNT 3.35 MIL/MM3 (4.50-5.90); RED CELL DISTRIBUTION WIDTH 17.8 % (11.6-17.2); WHITE BLOOD COUNT 13.2 TH/MM3 (4.0-11.0)
[2016-12-29 05:58] LABS: BICARBONATE 24.8 MEQ/L (21.0-32.0); POTASSIUM 4.1 MEQ/L (3.5-5.1)
[2016-12-29] MEDS: DOCUSATE SODIUM 50 MG/SENNA 8.6 MG TAB PO SCH ×3 (08:03→20:51)
[2016-12-29] MEDS: LOW DOSE INSULIN NOVOLOG SUPPLEMENTAL SCALE SQ SCH ×4 (08:03→20:50)
[2016-12-29] MEDS: METOPROLOL TARTRATE 25 MG TAB PO SCH ×2 (08:03→20:49)
[2016-12-29] MEDS: amLODIPine BESYLATE 5 MG TAB PO SCH (08:04)
[2016-12-29] MEDS: ACETAMINOPHEN/HYDROcodone 325 MG/5 MG TAB PO PRN ×3 (08:05→23:27)
[2016-12-29] MEDS: SODIUM CHLORIDE 0.9% FLUSH 10 ML FLUSH IV FLUSH SCH ×2 (08:10→20:49)
[2016-12-29] MEDS: RESP: ALBUTEROL 2.5 MG/IPRATROPIUM 0.5 MG NEB (SCH) NEB ×4 (08:51→20:00)
--- NOTE | 2016-12-29 09:51 | HHI.FPPN ---
Subjective Remarks C/O INCR WEAKNESS C/O INCR COUGH AND WHEEZING C/O DIZZY AND ORTHOSTASIS AND UNABLE TO SIT UP OR GO HOME. D/W RN Objective Vitals Vital Signs Date Time Temp Pulse Resp B/P (MAP) Pulse Ox O2 Delivery O2 Flow Rate FiO2 12/29/16 08:51 97 21 12/29/16 08:00 98.0 76 17 159/79 (105) 96 12/29/16 04:00 97.9 76 16 128/61 (83) 96 12/29/16 00:25 98.1 72 18 128/67 (87) 98 12/28/16 21:55 78 139/76 (97) 12/28/16 20:37 98.2 73 17 125/58 (80) 99 12/28/16 20:20 98 12/28/16 18:26 98.6 76 16 111/66 (81) 100 12/28/16 16:45 68 20 126/60 (82) 95 Nasal Cannula 2 12/28/16 16:30 70 20 129/57 (81) 94 Nasal Cannula 2 12/28/16 16:27 98 21 12/28/16 16:15 84 20 139/61 (87) 93 Nasal Cannula 2 12/28/16 16:00 98.0 71 20 154/68 (96) 92 Nasal Cannula 2 12/28/16 13:50 98.5 72 18 144/88 (106) 96 12/28/16 10:27 98.6 75 16 148/70 (96) 98 12/28/16 10:15 148/70 (96) I/O 12/28/16 12/28/16 12/28/16 12/29/16 12/29/16 12/29/16 07:00 15:00 23:00 07:00 15:00 23:00 Intake Total 250 ml 400 ml Balance 250 ml 400 ml Intake Oral 0 ml IV Total 250 ml 0 ml Other 400 ml # Voids 1 # Bowel Movements 1 Result Diagram: 12/29/16 05012/29/16 0509 Objective Remarks GENERAL: UNABLE TO SIT UP, VERY WEAK SKIN: Warm and dry. HEAD: Atraumatic. Normocephalic. EYES: Pupils equal and round. No scleral icterus. No injection or drainage. ENT: No nasal bleeding or discharge. Mucous membranes pink and moist. NECK: Trachea midline. No JVD. CARDIOVASCULAR: Regular rate and rhythm. RESPIRATORY: inspir and expir wheezes, harsh cough, consol r side GASTROINTESTINAL: Abdomen soft, non-tender, nondistended. Hepatic and splenic margins not palpable. MUSCULOSKELETAL: Extremities without clubbing, cyanosis, or edema. No obvious deformities. NEUROLOGICAL: Awake and alert. No obvious cranial nerve deficits. Motor grossly within normal limits. 2 out of 5 muscle strength in the arms and legs. Normal speech. PSYCHIATRIC: Appropriate mood and affect; insight and judgment normal. Medications and IVs Current Medications Medications (Trade) Dose Ordered Sig/Rosa Route Start Time Stop Time Status Last Admin (NS Flush) 2 ml UNSCH PRN IV FLUSH 12/26/16 14:45 (NS Flush) 2 ml BID IV FLUSH 12/26/16 21:00 12/29/16 08:10 (Tylenol) 650 mg Q4H PRN PO 12/26/16 14:45 (Zofran Inj) 4 mg Q6H PRN IVP 12/26/16 14:45 12/28/16 07:24 (Ambien) 5 mg HS PRN PO 12/26/16 14:45 12/27/16 23:15 (Narcan Inj) 0.4 mg UNSCH PRN IV PUSH 12/26/16 14:45 (Salena-Colace) 1 tab BID PO 12/26/16 21:00 12/29/16 08:03 (Milk Of Magnesia Liq) 30 ml Q12H PRN PO 12/26/16 14:45 (Senokot) 17.2 mg Q12H PRN PO 12/26/16 14:45 (Dulcolax Supp) 10 mg DAILY PRN RECTAL 12/26/16 14:45 (Lactulose Liq) 30 ml DAILY PRN PO 12/26/16 14:45 (Norvasc) 5 mg DAILY PO 12/27/16 09:00 12/29/16 08:04 (Lopressor) 25 mg BID PO 12/26/16 15:00 12/29/16 08:03 (Ativan) 0.5 mg Q8H PRN PO 12/26/16 15:00 Azithromycin 500 mg/Sodium Chloride 250 ml @ 250 mls/hr Q24H IV 12/27/16 13:00 12/28/16 12:53 (Duoneb Neb) 1 ampule QID NEB NEB 12/26/16 16:00 12/29/16 08:51 (Vasotec Inj) 2.5 mg Q6H PRN IV PUSH 12/26/16 15:00 Levofloxacin/ Dextrose 150 ml @ 100 mls/hr Q24H IV 12/26/16 16:00 12/28/16 17:25 ([place] 5-325 Mg) 1 tab Q4H PRN PO 12/26/16 15:00 12/29/16 08:05 (SoluMEDROL INJ) 80 mg Q6HR IV PUSH 12/26/16 18:00 12/29/16 05:38 (Protonix Inj) 40 mg Q24H IV PUSH 12/26/16 16:00 12/28/16 16:47 (Catapres) 0.1 mg Q6H PRN PO 12/26/16 15:00 12/27/16 15:55 Sodium Chloride 1,000 ml @ 0 mls/hr Q0M IV 12/27/16 11:42 (Albuterol Concentrated Neb) 2.5 mg SKIN INSTALLER NEB 12/27/16 11:45 12/31/16 11:44 12/28/16 13:53 (Lidocaine Pf 4% Neb) 3 ml SKIN INSTALLER NEB 12/27/16 11:45 12/31/16 11:44 12/28/16 13:53 Lactated Ringer's 1,000 ml @ 30 mls/hr Q24H PRN IV 12/27/16 14:15 12/30/16 14:14 12/28/16 13:40 Sodium Chloride 500 ml @ 30 mls/hr [id number] PRN IV 12/27/16 14:15 12/30/16 14:14 (Lopressor) 25 mg SKIN INSTALLER PRN PO 12/27/16 14:15 12/30/16 14:14 (Betadine 5% Antisepsis Kit) 1 applic SKIN INSTALLER PRN EACH NARE 12/27/16 14:15 12/30/16 14:14 (Chlorhexidine 2% Cloth) 3 pack SKIN INSTALLER PRN TOPICAL 12/27/16 14:15 12/30/16 14:14 (D50w (Vial) Inj) 50 ml UNSCH PRN IV PUSH 12/27/16 21:15 (Glucagon Inj) 1 mg UNSCH PRN OTHER 12/27/16 21:15 (NovoLOG SUPPLEMENTAL SCALE) 1 ACHS SLIDING SCALE SQ 12/27/16 22:00 12/29/16 08:03 (Morphine Inj) 3 mg Q4H PRN IV PUSH 12/28/16 08:00 12/29/16 01:56 (Albuterol Neb) 2.5 mg UNSCH X1 PRN NEB 12/28/16 16:00 12/29/16 15:59 Miscellaneous Information ALL NURSING DEPARTME... UNSCH PRN .XX 12/28/16 15:55 12/29/16 15:54 A/P Assessment and Plan ASSESSMENT AND PLAN: Chest pain- Telemetry. DR POON CONSULT Pneumonia: IV ABX, IV STEROIDS, FOLLOWUP BLOOD CULTURES. COPD Diabetes: SSI Smoker. Hypertension. Lung mass: BRONCH BY DR HUGHES. LIKELY CA. Leukocytosis. Scrotal hernia: SEEN BY DR HUGHES, FOLLOWUP DR LIGHT OUTPT. GI prophylaxis Protonix 40 IV daily. DVT PROPHYLAXIS: TANYA hosrohini. WEAKNESS AND ORTHOSTASIS: Physical therapy. DISPOSITION: SNF OR [facility] Osmani José MD Dec 29, 2016 09:51
[2016-12-29] MEDS: AZITHROMYCIN INJ 500 MG in SODIUM CHLOR 0.9% 250 ML INJ 250 ML IV SCH (13:40)
[2016-12-29] MEDS: LEVOFLOXACIN 750 MG PREMIX INJ 150 ML IV SCH (15:28)
[2016-12-29] MEDS: PANTOPRAZOLE SODIUM 40 MG VIAL IV PUSH SCH (15:28)
--- NOTE | 2016-12-29 23:32 | PD.CARD.PN ---
Subjective Subjective Remarks Patient was seen around 8pm Feels weak, still coughing up phlegm No chest pain Objective Medications Current Medications Medications (Trade) Dose Ordered Sig/Rosa Route Start Time Stop Time Status Last Admin (NS Flush) 2 ml UNSCH PRN IV FLUSH 12/26/16 14:45 (NS Flush) 2 ml BID IV FLUSH 12/26/16 21:00 12/29/16 20:49 (Tylenol) 650 mg Q4H PRN PO 12/26/16 14:45 (Zofran Inj) 4 mg Q6H PRN IVP 12/26/16 14:45 12/28/16 07:24 (Ambien) 5 mg HS PRN PO 12/26/16 14:45 12/27/16 23:15 (Narcan Inj) 0.4 mg UNSCH PRN IV PUSH 12/26/16 14:45 (Salena-Colace) 1 tab BID PO 12/26/16 21:00 12/29/16 08:03 (Milk Of Magnesia Liq) 30 ml Q12H PRN PO 12/26/16 14:45 (Senokot) 17.2 mg Q12H PRN PO 12/26/16 14:45 (Dulcolax Supp) 10 mg DAILY PRN RECTAL 12/26/16 14:45 (Lactulose Liq) 30 ml DAILY PRN PO 12/26/16 14:45 (Norvasc) 5 mg DAILY PO 12/27/16 09:00 12/29/16 08:04 (Lopressor) 25 mg BID PO 12/26/16 15:00 12/29/16 20:49 (Ativan) 0.5 mg Q8H PRN PO 12/26/16 15:00 Azithromycin 500 mg/Sodium Chloride 250 ml @ 250 mls/hr Q24H IV 12/27/16 13:00 12/29/16 13:40 (Duoneb Neb) 1 ampule QID NEB NEB 12/26/16 16:00 12/29/16 16:09 (Vasotec Inj) 2.5 mg Q6H PRN IV PUSH 12/26/16 15:00 Levofloxacin/ Dextrose 150 ml @ 100 mls/hr Q24H IV 12/26/16 16:00 12/29/16 15:28 ([place] 5-325 Mg) 1 tab Q4H PRN PO 12/26/16 15:00 12/29/16 23:27 (Protonix Inj) 40 mg Q24H IV PUSH 12/26/16 16:00 12/29/16 15:28 (Catapres) 0.1 mg Q6H PRN PO 12/26/16 15:00 12/27/16 15:55 Sodium Chloride 1,000 ml @ 0 mls/hr Q0M IV 12/27/16 11:42 (Albuterol Concentrated Neb) 2.5 mg UI DEVELOPER NEB 12/27/16 11:45 12/31/16 11:44 12/28/16 13:53 (Lidocaine Pf 4% Neb) 3 ml UI DEVELOPER NEB 12/27/16 11:45 12/31/16 11:44 12/28/16 13:53 Lactated Ringer's 1,000 ml @ 30 mls/hr Q24H PRN IV 12/27/16 14:15 12/30/16 14:14 12/28/16 13:40 Sodium Chloride 500 ml @ 30 mls/hr [id number] PRN IV 12/27/16 14:15 12/30/16 14:14 (Lopressor) 25 mg UI DEVELOPER PRN PO 12/27/16 14:15 12/30/16 14:14 (Betadine 5% Antisepsis Kit) 1 applic UI DEVELOPER PRN EACH NARE 12/27/16 14:15 12/30/16 14:14 (Chlorhexidine 2% Cloth) 3 pack UI DEVELOPER PRN TOPICAL 12/27/16 14:15 12/30/16 14:14 (D50w (Vial) Inj) 50 ml UNSCH PRN IV PUSH 12/27/16 21:15 (Glucagon Inj) 1 mg UNSCH PRN OTHER 12/27/16 21:15 (NovoLOG SUPPLEMENTAL SCALE) 1 ACHS SLIDING SCALE SQ 12/27/16 22:00 12/29/16 20:50 (Morphine Inj) 3 mg Q4H PRN IV PUSH 12/28/16 08:00 12/29/16 01:56 (SoluMEDROL INJ) 40 mg BID IV PUSH 12/29/16 21:00 12/29/16 20:49 Vital Signs / I&O Vital Signs Date Time Temp Pulse Resp B/P (MAP) Pulse Ox O2 Delivery O2 Flow Rate FiO2 12/29/16 19:00 97.5 76 18 138/69 (92) 97 12/29/16 16:30 16 12/29/16 16:00 96.2 67 18 146/70 (95) 99 12/29/16 12:00 97.7 68 17 163/82 (109) 97 12/29/16 08:51 97 21 12/29/16 08:00 98.0 76 17 159/79 (105) 96 12/29/16 04:00 97.9 76 16 128/61 (83) 96 12/29/16 00:25 98.1 72 18 128/67 (87) 98 I/O 12/29/16 12/29/16 12/29/16 12/30/16 12/30/16 12/30/16 07:00 15:00 23:00 07:00 15:00 23:00 Intake Total 600 ml Balance 600 ml Intake Oral 600 ml # Voids 2 # Bowel Movements 1 Physical Exam GENERAL: NAD, AAOx3 SKIN: Warm and dry. HEAD: Atraumatic. Normocephalic. EYES: Pupils equal and round. No scleral icterus. No injection or drainage. ENT: No nasal bleeding or discharge. Mucous membranes pink and moist. NECK: Trachea midline. No JVD. CARDIOVASCULAR: Regular rate and rhythm. RESPIRATORY: No accessory muscle use. Decreased breath sounds bilaterally GASTROINTESTINAL: Abdomen soft, non-tender, nondistended. Hepatic and splenic margins not palpable. MUSCULOSKELETAL: Extremities without clubbing, cyanosis, or edema. No obvious deformities. NEUROLOGICAL: Awake and alert. No obvious cranial nerve deficits. Motor grossly within normal limits. Five out of 5 muscle strength in the arms and legs. Normal speech. PSYCHIATRIC: Appropriate mood and affect; insight and judgment normal. Laboratory Laboratory Tests Test 12/29/16 05:09 White Blood Count 13.2 TH/MM3 Red Blood Count 3.35 MIL/MM3 Hemoglobin 9.8 GM/DL Hematocrit 29.5 % Mean Corpuscular Volume 88.1 FL Mean Corpuscular Hemoglobin 29.2 PG Mean Corpuscular Hemoglobin Concent 33.2 % Red Cell Distribution Width 17.8 % Platelet Count 223 TH/MM3 Mean Platelet Volume 9.4 FL Neutrophils (%) (Auto) 87.7 % Lymphocytes (%) (Auto) 9.5 % Monocytes (%) (Auto) 2.7 % Eosinophils (%) (Auto) 0.0 % Basophils (%) (Auto) 0.1 % Neutrophils # (Auto) 11.6 TH/MM3 Lymphocytes # (Auto) 1.3 TH/MM3 Monocytes # (Auto) 0.4 TH/MM3 Eosinophils # (Auto) 0.0 TH/MM3 Basophils # (Auto) 0.0 TH/MM3 CBC Comment DIFF FINAL Differential Comment Blood Urea Nitrogen 38 MG/DL Creatinine 0.99 MG/DL Random Glucose 223 MG/DL Calcium Level 8.1 MG/DL Sodium Level 140 MEQ/L Potassium Level 4.1 MEQ/L Chloride Level 107 MEQ/L Carbon Dioxide Level 24.8 MEQ/L Anion Gap 8 MEQ/L Estimat Glomerular Filtration Rate 74 ML/MIN Assessment and Plan Problem List: (1) Chest pain, atypical ICD Codes: R07.89 - Other chest pain Status: Acute (2) Pneumonia ICD Codes: J18.9 - Pneumonia, unspecified organism Status: Acute (3) Chronic ischemic heart disease, unspecified ICD Codes: I25.9 - Chronic ischemic heart disease, unspecified (4) Tobacco abuse ICD Codes: Z72.0 - Tobacco use Status: Acute (5) DM (diabetes mellitus) ICD Codes: E11.9 - Type 2 diabetes mellitus without complications Status: Acute Assessment and Plan 1) No further chest pain Atypical chest pain Negative nuclear myocardial perfusion stress test 2) HTN Blood pressure controlled 3) s/p Bronch Concern for malignant cells 4) Will see PRN, call with questions Problem Qualifiers (1) Pneumonia: Qualified Codes: J18.1 - Lobar pneumonia, unspecified organism Matthew Rodriguez DO Dec 29, 2016 23:32
[2016-12-30] VITALS: BP 136/70; PULSE 61; RESP 20; TEMP 98.2; O2SAT 98
[2016-12-30 04:00] VITALS: BP 144/72; PULSE 64; PULSE 80; RESP 18; RESP 20; TEMP 97.6; TEMP 98.6; O2SAT 95; O2SAT 97
[2016-12-30] MEDS: ACETAMINOPHEN/HYDROcodone 325 MG/5 MG TAB PO PRN ×3 (04:46→15:53)
[2016-12-30] MEDS: RESP: ALBUTEROL 2.5 MG/IPRATROPIUM 0.5 MG NEB (SCH) NEB ×3 (07:36→15:28)
[2016-12-30 08:00] VITALS: BP 150/80; PULSE 84; RESP 18; TEMP 97; O2SAT 95
[2016-12-30] MEDS: METOPROLOL TARTRATE 25 MG TAB PO SCH (09:00)
[2016-12-30] MEDS: DOCUSATE SODIUM 50 MG/SENNA 8.6 MG TAB PO SCH (09:00)
[2016-12-30] MEDS: amLODIPine BESYLATE 5 MG TAB PO SCH (09:00)
[2016-12-30] MEDS: methylPREDNISolone SOD SUCC 40 MG/1 ML VIAL IV PUSH SCH (09:06)
[2016-12-30] MEDS: SODIUM CHLORIDE 0.9% FLUSH 10 ML FLUSH IV FLUSH SCH (09:08)
[2016-12-30] MEDS: LOW DOSE INSULIN NOVOLOG SUPPLEMENTAL SCALE SQ SCH ×2 (09:09→12:00)
[2016-12-30] MEDS: AZITHROMYCIN INJ 500 MG in SODIUM CHLOR 0.9% 250 ML INJ 250 ML IV SCH (13:26)
[2016-12-30] MEDS: LEVOFLOXACIN 750 MG PREMIX INJ 150 ML IV SCH (15:53)
[2016-12-30] MEDS: PANTOPRAZOLE SODIUM 40 MG VIAL IV PUSH SCH (15:54)
[2016-12-30] MEDS ORDERED: ADVA230A INH (16:25)
[2016-12-30] MEDS ORDERED: AZIT250T3 PO (16:25)
[2016-12-30] MEDS ORDERED: ALBUAER3 INH (16:25)
[2016-12-30] MEDS ORDERED: CEFU1TAB42 PO (16:25)
--- NOTE | 2016-12-30 16:26 | HHI.DCPOC ---
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 Avoid second hand smoke Call the 24-hour hour crisis hotline for domestic abuse at Osmani José MD Dec 30, 2016 16:26
--- NOTE | 2016-12-30 16:27 | HHI.DS ---
Discharge Summary Admission Date Dec 28, 2016 at 10:19 Discharge Date: Dec 30, 2016 Admitting Diagnosis Pneumonia (1) Tobacco abuse ICD Codes: Z72.0 - Tobacco use Status: Acute (2) DM (diabetes mellitus) ICD Codes: E11.9 - Type 2 diabetes mellitus without complications Status: Acute (3) Hypertension ICD Codes: I10 - Essential (primary) hypertension Status: Acute (4) Chest pain, atypical ICD Codes: R07.89 - Other chest pain Status: Acute (5) Decreased cardiac ejection fraction ICD Codes: R93.1 - Abnormal findings on diagnostic imaging of heart and coronary circulation (6) Atypical chest pain ICD Codes: R07.89 - Other chest pain (7) 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 Status: Acute (8) High blood pressure ICD Codes: I10 - Hypertension Status: Acute (9) Hyponatremia ICD Codes: E87.1 - Hypo-osmolality and hyponatremia Status: Acute (10) Chronic ischemic heart disease, unspecified ICD Codes: I25.9 - Chronic ischemic heart disease, unspecified (11) Pneumonia ICD Codes: J18.9 - Pneumonia, unspecified organism Status: Acute CBC/BMP: 12/29/16 0509 12/29/16 0509 Significant Findings Laboratory Tests Test 12/28/16 09:42 12/29/16 05:09 White Blood Count 14.9 TH/MM3 (4.0-11.0) 13.2 TH/MM3 (4.0-11.0) Red Blood Count 3.43 MIL/MM3 (4.50-5.90) 3.35 MIL/MM3 (4.50-5.90) Hemoglobin 10.0 GM/DL (13.0-17.0) 9.8 GM/DL (13.0-17.0) Hematocrit 30.2 % (39.0-51.0) 29.5 % (39.0-51.0) Red Cell Distribution Width 17.6 % (11.6-17.2) 17.8 % (11.6-17.2) Neutrophils (%) (Auto) 90.9 % (16.0-70.0) 87.7 % (16.0-70.0) Lymphocytes (%) (Auto) 7.3 % (9.0-44.0) Neutrophils # (Auto) 13.6 TH/MM3 (1.8-7.7) 11.6 TH/MM3 (1.8-7.7) Blood Urea Nitrogen 32 MG/DL (7-18) 38 MG/DL (7-18) Random Glucose 276 MG/DL (74-106) 223 MG/DL (74-106) Chloride Level 108 MEQ/L (98-107) Estimat Glomerular Filtration Rate 80 ML/MIN (>89) 74 ML/MIN (>89) Calcium Level 8.1 MG/DL (8.5-10.1) PE at Discharge GENERAL: SKIN: Warm and dry. HEAD: Atraumatic. Normocephalic. EYES: Pupils equal and round. No scleral icterus. No injection or drainage. ENT: No nasal bleeding or discharge. Mucous membranes pink and moist. NECK: Trachea midline. No JVD. CARDIOVASCULAR: Regular rate and rhythm. RESPIRATORY: No accessory muscle use. Clear to auscultation. Breath sounds equal bilaterally. GASTROINTESTINAL: Abdomen soft, non-tender, nondistended. Hepatic and splenic margins not palpable. MUSCULOSKELETAL: Extremities without clubbing, cyanosis, or edema. No obvious deformities. NEUROLOGICAL: Awake and alert. No obvious cranial nerve deficits. Motor grossly within normal limits. Five out of 5 muscle strength in the arms and legs. Normal speech. PSYCHIATRIC: Appropriate mood and affect; insight and judgment normal. Hospital Course 76 Y CM, ADMIT WITH - Chest pain- Telemetry. DR POON CONSULT Pneumonia: IV ABX, IV STEROIDS, FOLLOWUP BLOOD CULTURES. COPD Diabetes: SSI Smoker. Hypertension. Lung mass: BRONCH BY DR HUGHES. LIKELY CA. Leukocytosis. Scrotal hernia: SEEN BY DR HUGHES, FOLLOWUP DR LIGHT OUTPT. GI prophylaxis Protonix 40 IV daily. DVT PROPHYLAXIS: TANYA hose. WEAKNESS AND ORTHOSTASIS: Physical therapy. DISPO: PT REQS NO SNF, AND WANTS DC. SEE ME TOMORROW IN OFFICE... Pt Condition on Discharge: Good Discharge Disposition: Disch w/ Home Health Serv Discharge Instructions DIET: Follow Instructions for: As Tolerated, No Restrictions Activities you can perform: Regular-No Restrictions Follow up Referrals: Cardiology - 2-[address] POON PCP Follow-up - 2-3 Days Pulmonology - 2-3 Days with Davis Hughes MD Surgical - 1 Week with Khris Light MD New Medications: Albuterol 8.5 GM Inh (Proair Hfa 8.5 GM Inh) 90 Mcg/Act Aer 2 PUFF INH Q4-6H PRN for SHORTNESS OF BREATH, #1 INHALER 11 Refills 108 mcg/actuation Azithromycin (Azithromycin) 250 Mg Tab 250 MG PO DIRECTED for Infection, #6 TAB 0 Refills Take 2 tabs (500 mg) on day 1 then 1 tab daily x 4 days. Cefuroxime (Ceftin) 250 Mg Tab 250 MG PO BID for PNA for 7 Days, #14 TAB Fluticasone-Salmeterol 12 GM Inh (Advair Hfa 12 GM Inh) 230-21 Mcg/Act Aer 2 PUFF INH BID for Chest Congestion/Cough, #1 INHALER 11 Refills Continued Medications: Amlodipine (Amlodipine) 5 Mg Tab 5 MG PO DAILY for Blood Pressure Management, #30 TAB 1 Refill Metoprolol Tartrate (Metoprolol Tartrate) 25 Mg Tab 25 MG PO BID for Blood Pressure Management, #60 TAB 1 Refill Osmani José MD Dec 30, 2016 16:27
[2016-12-30 16:30] VITALS: BP 140/80; PULSE 64; RESP 16; TEMP 97.9; O2SAT 97
--- NOTE | 2016-12-30 16:32 | HHI.FF ---
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 (9) Hypertension (10) DM (diabetes mellitus) Physical Therapy Order: Evaluate and Treat, Improve ambulation, Strength and gait training Home Health Nursing Order: Medical education Signs/symptoms of disease process CHF education Oxygen administration education Medication education-adverse effect Nursing assessment with vital signs Telehealth Home Health Aide Order: To Assist In: Bathing and personal care, farm truck driver and meal prep Childbirth And Infant Care Teacher Order: To Evaluate: Living conditions/environment, Support services Order: To Provide: Long range planning, Community services I have seen patient Abdelrahman Talbot on 12/30/16. My clinical findings support the need for the requested home health care services because: Ltd mobility - disease progression Patient has SOB Deconditioned w/ increased weakness Med compliance is questionable Limited ability to care for self Need for psychosocial assistance Impaired cognition/judgement High risk of falls Infection w/ risk of complications I certify that my clinical findings support that this patient is homebound because: Post-op weakness Impaired cognitive ability/safety Hx COPD- exertion dyspnea/weakness Unsteady gait/balance Unsafe to leave home unassisted Need for psychosocial assistance [id number]-[id number] bed/chair Unable to use public transportation Poor cardiac reserve Osmani José MD Dec 30, 2016 16:32
== END 2016-12-30 18:44 | disposition home or self-care (01) | DRG 166 ==
LOC: NEPC 09:20 → NEDA 12:26 → NEPHCDU 16:30 → OBSVTOIN 12-28 10:19 → N06B 12-28 22:57
PROVIDERS: ADMIT Family Medicine; ATTEND Family Medicine
PROC: 0BDF8ZX Extraction of Right Lower Lung Lobe, Via Natural or Artificial Opening Endoscopic, Diagnostic (ICD-10-PCS; 2016-12-28)
PROC: 0B9C8ZX Drainage of Right Upper Lung Lobe, Via Natural or Artificial Opening Endoscopic, Diagnostic (ICD-10-PCS; principal; 2016-12-28 14:31)
DX: J44.0 Chronic obstructive pulmonary disease with (acute) lower respiratory infection (principal); J18.9 Pneumonia, unspecified organism; E86.0 Dehydration; C34.11 Malignant neoplasm of upper lobe, right bronchus or lung; E11.9 Type 2 diabetes mellitus without complications; I25.9 Chronic ischemic heart disease, unspecified; I10 Essential (primary) hypertension; F32.9 Major depressive disorder, single episode, unspecified; I25.10 Atherosclerotic heart disease of native coronary artery without angina pectoris; F17.210 Nicotine dependence, cigarettes, uncomplicated; H91.90 Unspecified hearing loss, unspecified ear; K40.91 Unilateral inguinal hernia, without obstruction or gangrene, recurrent
CPT/HCPCS: 71010; 71275; 76937; 80048; 80053; 81001; 82550; 82948; 83036; 83880; 84484; 85025; 85610; 85730; 87015; 87040; 87070; 87102; 87116; 87205; 87206; 87804; 88172; 88173; 88305; 88341; 90686; 90732; 93005; 94640; 94664; 96361; 96366; 96372; 96376; C9113; G0378; G8987-GP; G8988-GP; J0171; J0330; J0456; J0696; J1650; J1815; J1956; J2270; J2405; J2710; J2920; J3010; J7030; J7050; J7120; J7611; Q2038; Q9967

== ENCOUNTER 2017-04-03 09:00 | Emergency (ER) | payer BC, MEDICARE ==
[~2017-04-03 09:00] MED LIST changes: +ADVA230A INH; +ALBUAER3 INH; -ASPI325T PO; +AZIT250T3 PO; +CEFU1TAB18 PO
[2017-04-03 09:11] VITALS: BP 133/71; PULSE 58; RESP 17; TEMP 98.6; O2SAT 99
[2017-04-03] MEDS ORDERED: SODIUM CHLOR 0.9% 1000 ML INJ 1,000 ML IV ONE (09:21)
[2017-04-03] MEDS ORDERED: SODIUM CHLORIDE 0.9% FLUSH 10 ML FLUSH IVF PRN (09:30)
--- NOTE | 2017-04-03 09:37 | RADRPT ---
EXAM DATE/TIME: 04/03/2017 09:32 [facility] COMPARISON: CHEST SINGLE AP, December 26, 2016, 9:57. INDICATIONS : Short of breath MEDICAL HISTORY : Hypertension. Carcinoma, lung. SURGICAL HISTORY : None. ENCOUNTER: Initial ACUITY: 3 days PAIN SCORE: 0/10 LOCATION: chest FINDINGS: AP upright portable view of the chest is performed. There is mild patient rotation. There is a rounde d airspace opacity involving the right upper lobe with mild volume loss identified in the right upper lobe. There is bowing of the trachea to the right. These findings are not significantly changed give n the degree of rotation. The left hemithorax is clear. Heart size is moderately enlarged with tortuo sity thoracic aorta. CONCLUSION: Right upper lobe mass with mild volume loss identified within the right upper lobe. Findings appear t o be grossly stable given the degree of rotation. The Kina Erickson MD on April 03, 2017 at 9:32 Board Certified Radiologist. This report was verified electronically.
[2017-04-03 09:45] LABS: AUTOMATED NEUTROPHIL # 5.9 TH/MM3 (1.8-7.7); BASOPHIL # 0.1 TH/MM3 (0-0.2); BASOPHIL % 0.7 % (0.0-2.0); EOSINOPHIL # 0.1 TH/MM3 (0-0.4); EOSINOPHIL % 1.2 % (0.0-4.0); HEMOGLOBIN 11.8 GM/DL (13.0-17.0); LYMPH % 30.8 % (9.0-44.0); MEAN CELL VOLUME 90.9 FL (80.0-100.0); MEAN CORPUSCULAR HEMOGLOBIN 30.6 PG (27.0-34.0); MEAN CORPUSCULAR HGB CONC 33.7 % (32.0-36.0); MEAN PLATELET VOLUME 9.2 FL (7.0-11.0); MONO % 5.5 % (0.0-8.0); MONOCYTE # 0.5 TH/MM3 (0-0.9); NEUT % 61.8 % (16.0-70.0); PLATELET COUNT 322 TH/MM3 (150-450); RED BLOOD COUNT 3.86 MIL/MM3 (4.50-5.90); RED CELL DISTRIBUTION WIDTH 15.7 % (11.6-17.2); WHITE BLOOD COUNT 9.6 TH/MM3 (4.0-11.0)
--- NOTE | 2017-04-03 09:47 | PD ---
HPI . Weakness Chief Complaint: General Weakness Time Seen by Provider: 09:16 Travel History International Travel<30 days: No Contact w/Intl Traveler<30days: No Traveled to known affect area: No History of Present Illness HPI Patient presents with chief complaint of generalized weakness. Onset was 3 or 4 days ago. It is worse today. He reports associated nausea without vomiting or diarrhea. He denies fever. He reports chronic shortness of breath related lung cancer. He states he's been having a good appetite. He has noted no modifying factors. PFSH Past Medical History Asthma: No Autoimmune Disease: No Blood Disorders: No Anxiety: No Depression: Yes Heart Rhythm Problems: No Cancer: Yes (lung) Cardiac Catheterization: No Cardiovascular Problems: Yes High Cholesterol: No Chemotherapy: No Chest Pain: Yes Congestive Heart Failure: No COPD: No Cerebrovascular Accident: No Diabetes: Yes Patient Takes Glucophage: No Diminished Hearing: Yes (BILAT EAR PAIN) Endocrine: Yes Gastrointestinal Disorders: No GERD: No Genitourinary: Yes (Urgency, hesitation.) Hypertension: Yes Immune Disorder: No Musculoskeletal: No Neurologic: No Psychiatric: Yes Reproductive: No Respiratory: Yes Immunizations Current: Yes Radiation Therapy: No Seizures: No Sickle Cell Disease: No Sleep Apnea: No Thyroid Disease: No Past Surgical History Abdominal Surgery: Yes (R HERNIA) AICD: No Arteriovenous Shunt: No Coronary Artery Bypass Graft: No Insulin Pump: No Joint Replacement: No Neurologic Surgery: Yes (diskectomy) Pacemaker: No Other Surgery: Yes (Back surgery () feet surgery, hernia repair) Family History Family Myocardial Infarction: Yes (mother had a pacemaker) Social History Alcohol Use: No Tobacco Use: Yes (10 cigaret ) Substance Use: No Allergies-Medications (Allergen,Severity, Reaction): Coded Allergies: No Known Allergies (Unverified , 12/01/15) Reported Meds & Prescriptions Reported Meds & Active Scripts Active Metoprolol Tartrate 25 Mg Tab 25 Mg PO BID Amlodipine (Amlodipine Besylate) 5 Mg Tab 5 Mg PO DAILY Reported [hydrocodone] Review of Systems Except as stated in HPI: all other systems reviewed are Neg General / Constitutional: No: Fever, Chills Cardiovascular: No: Chest Pain or Discomfort Respiratory: Positive: Cough, Shortness of Breath Gastrointestinal: Positive: Nausea, No: Vomiting, Diarrhea, Abdominal Pain, Loss of Appetite Genitourinary: Positive: Nocturia Neurologic: Positive: Weakness Physical Exam Narrative GENERAL: Awake and alert and in no acute distress. SKIN: warm/dry. Normal color and turgor. HEAD: Normocephalic. Atraumatic. EYES: Pupils equal and round. No scleral icterus. No injection or drainage. ENT: No nasal bleeding or discharge. Mucous membranes pink and moist. NECK: Trachea midline. Full range of motion without pain.. CARDIOVASCULAR: Regular rate and rhythm. Heart sounds normal. RESPIRATORY: No accessory muscle use. By dates or rales. Breath sounds equal bilaterally. Speaks in complete sentences without dyspnea. Sats are 99-100% on room air. GASTROINTESTINAL: Abdomen soft. Nontender. Bowel sounds present. Nondistended. MUSCULOSKELETAL: No obvious deformities. NEUROLOGICAL: Awake and alert. No obvious cranial nerve deficits. Motor grossly within normal limits. Normal speech. PSYCHIATRIC: Appropriate mood and affect; insight and judgment normal. Data Data Last Documented VS Vital Signs Date Time Temp Pulse Resp B/P (MAP) Pulse Ox O2 Delivery O2 Flow Rate FiO2 04/03/17 09:28 (91) 04/03/17 09:11 98.6 58 17 99 Orders Orders Electrocardiogram (04/03/17 09:21) Basic Metabolic Panel (Bmp) (04/03/17 09:21) Complete Blood Count With Diff (04/03/17 09:21) Troponin I (04/03/17 09:21) Chest, Single Ap (04/03/17 09:21) Ecg Monitoring (04/03/17 09:21) Iv Access Insert/Monitor (04/03/17 09:21) Oximetry (04/03/17 09:21) Sodium Chloride 0.9% Flush (Ns Flush) (04/03/17 09:30) Sodium Chlor 0.9% 1000 Ml Inj (Ns 1000 M (04/03/17 09:21) Labs Laboratory Tests Test 04/03/17 09:20 White Blood Count 9.6 TH/MM3 Red Blood Count 3.86 MIL/MM3 Hemoglobin 11.8 GM/DL Hematocrit 35.0 % Mean Corpuscular Volume 90.9 FL Mean Corpuscular Hemoglobin 30.6 PG Mean Corpuscular Hemoglobin Concent 33.7 % Red Cell Distribution Width 15.7 % Platelet Count 322 TH/MM3 Mean Platelet Volume 9.2 FL Neutrophils (%) (Auto) 61.8 % Lymphocytes (%) (Auto) 30.8 % Monocytes (%) (Auto) 5.5 % Eosinophils (%) (Auto) 1.2 % Basophils (%) (Auto) 0.7 % Neutrophils # (Auto) 5.9 TH/MM3 Lymphocytes # (Auto) 3.0 TH/MM3 Monocytes # (Auto) 0.5 TH/MM3 Eosinophils # (Auto) 0.1 TH/MM3 Basophils # (Auto) 0.1 TH/MM3 CBC Comment DIFF FINAL Differential Comment Blood Urea Nitrogen 16 MG/DL Creatinine 1.03 MG/DL Random Glucose 213 MG/DL Calcium Level 8.7 MG/DL Sodium Level 133 MEQ/L Potassium Level 4.0 MEQ/L Chloride Level 100 MEQ/L Carbon Dioxide Level 26.4 MEQ/L Anion Gap 7 MEQ/L Estimat Glomerular Filtration Rate 70 ML/MIN Troponin I LESS THAN 0.02 NG/ML MDM Medical Decision Making Medical Screen Exam Complete: Yes Emergency Medical Condition: Yes Interpretation(s) EKG shows a sinus bradycardia with a rate of 57. No ST segment elevation or depression. Differential Diagnosis Differential diagnosis of weakness includes but is not limited to infection, CVA , electrolyte disturbance, renal failure, hypoglycemia, UTI, ACS, acute blood loss Narrative Course Patient presents complaining with generalized weakness. He is also complaining with shortness of breath but is able to speak in complete sentences without any respiratory distress. His sats are 99-100% on room air. He actually looks pretty well. CBC & BMP Diagram 04/03/17 09:20 Calcium Level 8.7 trop < 0.02 Last Impressions Chest X-Ray 04/03/17 0921 Signed Impressions: Service Date/Time: Monday, April 03, 2017 09:32 - CONCLUSION: Right upper lobe mass with mild volume loss identified within the right upper lobe. Findings appear to be grossly stable given the degree of rotation. The Kina Erickson MD No etiology for acute weakness or shortness of breath was found. This patient looks well clinically. The history, exam, diagnostic testing, and current condition do not suggest any significant pathology to warrant further testing, continued ED treatment, admission, or surgical evaluation at this point. No EMC was found. The patient 's condition is stable and appropriate for discharge. Diagnosis Primary Impression: Weakness Additional Impressions: Dyspnea Qualified Codes: R06.00 - Dyspnea, unspecified Lung cancer Qualified Codes: C34.11 - Malignant neoplasm of upper lobe, right bronchus or lung Patient Instructions: General Instructions, Weakness (DC) Disposition: 01 DISCHARGE HOME Condition: Stable Rose Donnelly MD Apr 03, 2017 09:47
[2017-04-03 10:39] LABS: BICARBONATE 26.4 MEQ/L (21.0-32.0); BLOOD UREA NITROGEN 16 MG/DL (7-18); CALCIUM 8.7 MG/DL (8.5-10.1); CHLORIDE 100 MEQ/L (98-107); CREATININE 1.03 MG/DL (0.60-1.30); GLOMERULAR FILTRATION RATE 70 ML/MIN (>89); GLUCOSE,RANDOM 213 MG/DL (74-106); SODIUM (NA) 133 MEQ/L (136-145)
[2017-04-03 10:43] LABS: TROPONIN I LESS THAN 0.02 NG/ML (0.02-0.05)
[2017-04-03] MEDS ORDERED: hydrocodone (11:05)
--- NOTE | 2017-04-04 17:55 | EKG ---
Date Performed: 04/03/2017 Time Performed: 09:09:39 PTAGE: 77 years EKG: SINUS BRADYCARDIA LEFT VENTRICULAR HYPERTROPHY AND ST-T CHANGE POSSIBLE INFERIOR MYOCARDIAL INFARCTION Consider myocardial infarction-age undeterminate. Prolonged corrected QT interval. ABNORM AL ECG PREVIOUS TRACING : 12/26/2016 09.32 DOCTOR: Khoa Wiggins Interpretating Date/Time 04/04/2017 17:55:17
== END 2017-04-03 11:47 | disposition home or self-care (01) ==
LOC: NEPE 09:00
DX: C34.11 Malignant neoplasm of upper lobe, right bronchus or lung (principal); R53.1 Weakness; R06.02 Shortness of breath; I10 Essential (primary) hypertension; F17.210 Nicotine dependence, cigarettes, uncomplicated
CPT/HCPCS: 71045; 80048; 84484; 85025; 93005; 99285; J7030

== ENCOUNTER 2017-04-13 05:25 | Emergency (ER) | payer MEDICARE ==
[~2017-04-13] VITALS: Ht 162.6 cm; Wt 69.0 kg
[~2017-04-13 05:25] MED LIST changes: -ADVA230A INH; -ALBUAER3 INH; -AZIT250T3 PO; -CEFU1TAB18 PO; +hydrocodone
[2017-04-13 05:29] VITALS: BP 170/104; PULSE 72; RESP 22; TEMP 98.8; O2SAT 99
[2017-04-13 05:38] VITALS: BP 186/94; PULSE 73; RESP 22; O2SAT 99
[2017-04-13] MEDS ORDERED: HYDR-3583 (05:39)
[2017-04-13] MEDS ORDERED: SODIUM CHLOR 0.9% 1000 ML INJ 1,000 ML IV SCH (05:44)
[2017-04-13] MEDS ORDERED: SODIUM CHLORIDE 0.9% FLUSH 10 ML FLUSH IV FLUSH PRN (05:45)
[2017-04-13 05:49] VITALS: BP 169/81; PULSE 71; RESP 22; O2SAT 98
--- NOTE | 2017-04-13 05:51 | PD ---
HPI Chief Complaint: Pain: Acute or Chronic Time Seen by Provider: 05:38 Travel History International Travel<30 days: No Contact w/Intl Traveler<30days: No Traveled to known affect area: No History of Present Illness HPI 77 years old male complains of left inguinal hernia pain and nausea vomiting. Patient states that he has history of left inguinal hernia for years. Patient started having increasing pain and nausea vomiting tonight. Patient denies any headache. Patient denies any chest pain or shortness of breath. Patient denies fever chills. Patient has history of COPD, diabetes, hypertension, lung mass, CAD. PFSH Past Medical History Asthma: No Autoimmune Disease: No Blood Disorders: No Anxiety: No Depression: Yes Heart Rhythm Problems: No Cancer: Yes (lung) Cardiac Catheterization: No Cardiovascular Problems: Yes High Cholesterol: No Chemotherapy: No Chest Pain: Yes Congestive Heart Failure: No COPD: No Cerebrovascular Accident: No Diabetes: Yes (BORDERLINE) Patient Takes Glucophage: No Diminished Hearing: Yes (BILAT EAR PAIN) Endocrine: Yes Gastrointestinal Disorders: No GERD: No Genitourinary: Yes (Urgency, hesitation.) Hypertension: Yes Immune Disorder: No Musculoskeletal: No Neurologic: No Psychiatric: Yes Reproductive: No Respiratory: Yes Immunizations Current: Yes Radiation Therapy: No Seizures: No Sickle Cell Disease: No Sleep Apnea: No Thyroid Disease: No Tetanus Vaccination: < 5 Years Past Surgical History Abdominal Surgery: Yes (R HERNIA) AICD: No Arteriovenous Shunt: No Coronary Artery Bypass Graft: No Insulin Pump: No Joint Replacement: No Neurologic Surgery: Yes (diskectomy) Pacemaker: No Other Surgery: Yes (Back surgery () feet surgery, hernia repair) Family History Family Myocardial Infarction: Yes (mother had a pacemaker) Social History Alcohol Use: No Tobacco Use: Yes (1 PPD ) Substance Use: No Allergies-Medications (Allergen,Severity, Reaction): Coded Allergies: No Known Allergies (Unverified Adverse Reaction, Unknown, 04/13/17) Reported Meds & Prescriptions Reported Meds & Active Scripts Active Metoprolol Tartrate 25 Mg Tab 25 Mg PO BID Amlodipine (Amlodipine Besylate) 5 Mg Tab 5 Mg PO DAILY Reported Hydrocodone-Acetamin 10-325 mg (Hydrocodone/Acetaminophen) 10 Mg-325 Mg Tablet [hydrocodone] Review of Systems General / Constitutional: No: Fever Eyes: No: Visual changes HENT: No: Headaches Cardiovascular: No: Chest Pain or Discomfort Respiratory: No: Shortness of Breath Gastrointestinal: No: Abdominal Pain Genitourinary: No: Dysuria Musculoskeletal: No: Pain Skin: No Rash Neurologic: No: Weakness Psychiatric: No: Depression Endocrine: No: Polydipsia Hematologic/Lymphatic: No: Easy Bruising Physical Exam Narrative GENERAL: Well-nourished, well-developed patient. SKIN: Focused skin assessment warm/dry. HEAD: Normocephalic. EYES: No scleral icterus. No injection or drainage. NECK: Supple, trachea midline. No JVD or lymphadenopathy. CARDIOVASCULAR: Regular rate and rhythm without murmurs, gallops, or rubs. RESPIRATORY: Breath sounds equal bilaterally. No accessory muscle use. GASTROINTESTINAL: Abdomen soft, non-tender, nondistended. MUSCULOSKELETAL: No cyanosis, or edema. BACK: Nontender without obvious deformity. No CVA tenderness. exam: Patient has a large soft left inguinal hernia. Attempt to reduce the mass only partially successful. Data Data Last Documented VS Vital Signs Date Time Temp Pulse Resp B/P (MAP) Pulse Ox O2 Delivery O2 Flow Rate FiO2 04/13/17 05:38 73 22 186/94 (124) 99 Nasal Cannula 2.00 04/13/17 05:29 98.8 Orders Orders Complete Blood Count With Diff (04/13/17 05:44) Comprehensive Metabolic Panel (04/13/17 05:44) Lipase (04/13/17 05:44) Prothrombin Time / Inr (Pt) (04/13/17 05:44) Act Partial Throm Time (Ptt) (04/13/17 05:44) Urinalysis - C+S If Indicated (04/13/17 05:44) Ct Abd/Pel W/O Iv Contrast (04/13/17 05:44) Iv Access Insert/Monitor (04/13/17 05:44) Ecg Monitoring (04/13/17 05:44) Oximetry (04/13/17 05:44) Sodium Chlor 0.9% 1000 Ml Inj (Ns 1000 M (04/13/17 05:44) Sodium Chloride 0.9% Flush (Ns Flush) (04/13/17 05:45) MDM Medical Decision Making Medical Screen Exam Complete: Yes Emergency Medical Condition: Yes Differential Diagnosis Differential diagnosis including reducible inguinal hernia, incarcerated inguinal hernia, strangulate inguinal hernia. Narrative Course 77 years old male with large left inguinal hernia. Patient complains of increasing pain and has nausea vomiting tonight. Michael Foreman MD Apr 13, 2017 05:51
[2017-04-13 06:10] LABS: AUTOMATED NEUTROPHIL # 7.2 TH/MM3 (1.8-7.7); BASOPHIL % 0.3 % (0.0-2.0); EOSINOPHIL # 0.2 TH/MM3 (0-0.4); EOSINOPHIL % 1.3 % (0.0-4.0); HEMOGLOBIN 11.1 GM/DL (13.0-17.0); LYMPH % 37.8 % (9.0-44.0); LYMPHOCYTE # 4.9 TH/MM3 (1.0-4.8); MEAN CELL VOLUME 90.8 FL (80.0-100.0); MEAN CORPUSCULAR HEMOGLOBIN 30.5 PG (27.0-34.0); MEAN CORPUSCULAR HGB CONC 33.6 % (32.0-36.0); MEAN PLATELET VOLUME 9.4 FL (7.0-11.0); MONOCYTE # 0.7 TH/MM3 (0-0.9); NEUT % 55.6 % (16.0-70.0); PLATELET COUNT 290 TH/MM3 (150-450); RED BLOOD COUNT 3.63 MIL/MM3 (4.50-5.90); RED CELL DISTRIBUTION WIDTH 15.6 % (11.6-17.2)
[2017-04-13 06:21] LABS: PROTHROMBIN TIME - PATIENT 9.7 SEC (9.8-11.6)
[2017-04-13 06:28] LABS: ALBUMIN 3.5 GM/DL (3.4-5.0); AST (GOT) 17 U/L (15-37); BICARBONATE 24.8 MEQ/L (21.0-32.0); BLOOD UREA NITROGEN 16 MG/DL (7-18); CALCIUM 9.1 MG/DL (8.5-10.1); CHLORIDE 98 MEQ/L (98-107); CREATININE 0.87 MG/DL (0.60-1.30); GLOMERULAR FILTRATION RATE 85 ML/MIN (>89); GLUCOSE,RANDOM 139 MG/DL (74-106); SODIUM (NA) 132 MEQ/L (136-145)
[2017-04-13 06:29] LABS: ALT (GPT) 27 U/L (12-78)
[2017-04-13 06:31] LABS: ALKALINE PHOSPHATASE 85 U/L (45-117); TOTAL BILIRUBIN ADULT 0.3 MG/DL (0.2-1.0); TOTAL PROTEIN 7.7 GM/DL (6.4-8.2)
--- NOTE | 2017-04-13 07:08 | PD ---
Data Data Last Documented VS Vital Signs Date Time Temp Pulse Resp B/P (MAP) Pulse Ox O2 Delivery O2 Flow Rate FiO2 04/13/17 08:25 04/13/17 07:20 67 20 100 Room Air 04/13/17 05:49 2.00 04/13/17 05:29 98.8 Orders Orders Complete Blood Count With Diff (04/13/17 05:44) Comprehensive Metabolic Panel (04/13/17 05:44) Lipase (04/13/17 05:44) Prothrombin Time / Inr (Pt) (04/13/17 05:44) Act Partial Throm Time (Ptt) (04/13/17 05:44) Urinalysis - C+S If Indicated (04/13/17 05:44) Ct Abd/Pel W/O Iv Contrast (04/13/17 05:44) Iv Access Insert/Monitor (04/13/17 05:44) Ecg Monitoring (04/13/17 05:44) Oximetry (04/13/17 05:44) Sodium Chlor 0.9% 1000 Ml Inj (Ns 1000 M (04/13/17 05:44) Sodium Chloride 0.9% Flush (Ns Flush) (04/13/17 05:45) Dicyclomine Inj (Bentyl Inj) (04/13/17 07:15) Ed Discharge Order (04/13/17 08:04) Labs Laboratory Tests Test 04/13/17 06:00 04/13/17 07:20 White Blood Count 13.0 TH/MM3 Red Blood Count 3.63 MIL/MM3 Hemoglobin 11.1 GM/DL Hematocrit 33.0 % Mean Corpuscular Volume 90.8 FL Mean Corpuscular Hemoglobin 30.5 PG Mean Corpuscular Hemoglobin Concent 33.6 % Red Cell Distribution Width 15.6 % Platelet Count 290 TH/MM3 Mean Platelet Volume 9.4 FL Neutrophils (%) (Auto) 55.6 % Lymphocytes (%) (Auto) 37.8 % Monocytes (%) (Auto) 5.0 % Eosinophils (%) (Auto) 1.3 % Basophils (%) (Auto) 0.3 % Neutrophils # (Auto) 7.2 TH/MM3 Lymphocytes # (Auto) 4.9 TH/MM3 Monocytes # (Auto) 0.7 TH/MM3 Eosinophils # (Auto) 0.2 TH/MM3 Basophils # (Auto) 0.0 TH/MM3 CBC Comment DIFF FINAL Differential Comment Prothrombin Time 9.7 SEC Prothromb Time International Ratio 1.0 RATIO Activated Partial Thromboplast Time 24.7 SEC Blood Urea Nitrogen 16 MG/DL Creatinine 0.87 MG/DL Random Glucose 139 MG/DL Total Protein 7.7 GM/DL Albumin 3.5 GM/DL Calcium Level 9.1 MG/DL Alkaline Phosphatase 85 U/L Aspartate Amino Transf (AST/SGOT) 17 U/L Alanine Aminotransferase (ALT/SGPT) 27 U/L Total Bilirubin 0.3 MG/DL Sodium Level 132 MEQ/L Potassium Level 3.7 MEQ/L Chloride Level 98 MEQ/L Carbon Dioxide Level 24.8 MEQ/L Anion Gap 9 MEQ/L Estimat Glomerular Filtration Rate 85 ML/MIN Lipase 220 U/L Urine Color YELLOW Urine Turbidity CLEAR Urine pH 7.5 Urine Specific [place] 1.015 Urine Protein TRACE mg/dL Urine Glucose (UA) NEG mg/dL Urine Ketones NEG mg/dL Urine Occult Blood NEG Urine Nitrite NEG Urine Bilirubin NEG Urine Urobilinogen LESS THAN 2.0 MG/DL Urine Leukocyte Esterase NEG Urine RBC LESS THAN 1 /hpf Urine WBC LESS THAN 1 /hpf Microscopic Urinalysis Comment CULT NOT INDICATED MDM Supervised Visit with [facility]: No Narrative Course Patient care assumed from Dr. Foreman at 0700. 77 year old male presents with left inguinal hernia. Has history of surgery with Dr. Kennedy in the past. Recurrent hernia and develped n/v last night. Hernia is soft, easily reduced and then immediately recurs, likely large myofascial deficit. Patient complains of mild abdominal cramping. At this point will follow up CT scan if negative will follow up outpatient with Dr. Knenedy. Discussed results of the CT scan with the patient, discussed the above recommendations. Pain under control no nausea no vomiting is stable for discharge. Diagnosis Primary Impression: Hernia, inguinal, recurrent Qualified Codes: K40.91 - Unilateral inguinal hernia, without obstruction or gangrene, recurrent Referrals: Khris Kennedy MD Med/Other Pt SpecificInfo: Prescription(s) given Scripts Ondansetron (Zofran) 4 Mg Tab 4 MG PO Q6HR Y for NAUSEA OR VOMITING, #10 TAB 0 Refills Prov: Danilo Coles MD 04/13/17 Tramadol (Ultram) 50 Mg Tab 50 MG PO Q6H Y for PAIN, #10 TAB 0 Refills Prov: Danilo Coles MD 04/13/17 Disposition: 01 DISCHARGE HOME Condition: Stable Danilo Coles MD Apr 13, 2017 07:08
[2017-04-13] MEDS ORDERED: DICYCLOMINE HCL 20 MG/2 ML VIAL IM ONE (07:15)
[2017-04-13 07:20] VITALS: BP 135/75; PULSE 67; RESP 20; O2SAT 100
--- NOTE | 2017-04-13 07:47 | RADRPT ---
EXAM DATE/TIME: 04/13/2017 07:18 [facility] COMPARISON: CT ABDOMEN & PELVIS W CONTRAST, July 20, 2014, 16:59. INDICATIONS : Inguinal hernia. ORAL CONTRAST: No oral contrast ingested. RADIATION DOSE: 9.19 CTDIvol (mGy) MEDICAL HISTORY : Carcinoma, lung. Hypertension. SURGICAL HISTORY : Hernia surgery ENCOUNTER: Initial ACUITY: 1 day PAIN SCALE: 6/10 LOCATION: pelvis TECHNIQUE: Volumetric scanning of the abdomen and pelvis was performed. Using automated exposure control and ad justment of the mA and/or kV according to patient size, radiation dose was kept as low as reasonably achievable to obtain optimal diagnostic quality images. DICOM format image data is available electro nically for review and comparison. FINDINGS: LOWER LUNGS: The visualized lower lungs are clear. LIVER: Homogeneous density without lesion. There is no dilation of the biliary tree. No calcified gallston es. Gallbladder seen as a luminal structure without wall thickening SPLEEN: Normal size without lesion. PANCREAS: Within normal limits. KIDNEYS: Normal in size and shape. There is no mass, stone, or hydronephrosis. ADRENAL GLANDS: Within normal limits. VASCULAR: 3.1 cm abdominal aortic aneurysm BOWEL/MESENTERY: There are extensive diverticuli uncomplicated of the colon predominately involving the descending and sigmoid region. ABDOMINAL WALL: Within normal limits. RETROPERITONEUM: There is no lymphadenopathy. BLADDER: No wall thickening or mass. REPRODUCTIVE: Within normal limits. INGUINAL: There is a large inguinal hernia containing colon which extends down into the scrotal region MUSCULOSKELETAL: Within normal limits for patient age. CONCLUSION: Large left inguinal hernia containing colon which extends down into the scrotal region. No evidence o f bowel obstruction. Uncomplicated diverticuli of the colon. 3.1 cm abdominal aortic aneurysm without evidence of leak. Judd Mobley MD on April 13, 2017 at 7:39 Board Certified Radiologist. This report was verified electronically.
[2017-04-13] MEDS ORDERED: ZOFR4TAB PO (08:12)
[2017-04-13] MEDS ORDERED: TRAM50 PO (08:12)
[2017-04-13 08:24] LABS: BILIRUBIN, URINE NEG (NEG); BLOOD, URINE NEG (NEG); GLUCOSE,URINE NEG (NEG); KETONE, URINE NEG (NEG); NITRITE,URINE NEG (NEG); PH, URINE 7.5 (5.0-8.5); URINE COLOR YELLOW (YELLW/STRAW); URINE LEUKOCYTE ESTERASE NEG (NEG)
== END 2017-04-13 09:49 | disposition home or self-care (01) ==
LOC: NEPC 05:25
DX: K40.91 Unilateral inguinal hernia, without obstruction or gangrene, recurrent (principal); E11.9 Type 2 diabetes mellitus without complications; I10 Essential (primary) hypertension; I25.10 Atherosclerotic heart disease of native coronary artery without angina pectoris; J44.9 Chronic obstructive pulmonary disease, unspecified; I71.4 Abdominal aortic aneurysm, without rupture; F32.9 Major depressive disorder, single episode, unspecified; F17.210 Nicotine dependence, cigarettes, uncomplicated
CPT/HCPCS: 74176; 80053; 81001; 83690; 85025; 85610; 85730; 96360; 96361; 96372; 99284; J0500; J7030